=== PATIENT | male | born 1930 | race Caucasian/White ===

== ENCOUNTER → 2016-05-04 | Outpatient (CLI) | payer MEDICARE, BC, OTHER ==
[~2016-05-04] MED LIST: /TAMS4CA OR; /WARF5TA OR; ACET65TA OR; ASPI81TA31 OR; ATEN25TA OR; BENA25TA4 PO; COLA100C2 OR; COUMADIN; COZA100T OR; HYDR25TA6 OR; LASI40TA PO; LIPI20TA OR; PRAD75CA3 PO; PROS5TAB OR; VITA100037 PO
[2016-05-04 12:26] LABS: INR 2.11
== END ==
LOC: M WUC 10:36
PROVIDERS: ATTEND Family Medicine
DX: Z51.81 Encounter for therapeutic drug level monitoring (principal); Z79.01 Long term (current) use of anticoagulants

== ENCOUNTER → 2016-05-26 | Outpatient (CLI) | payer MEDICARE, BC, OTHER ==
[2016-05-26 13:45] LABS: INR 2.11
== END ==
LOC: M WUC 09:09
PROVIDERS: ATTEND Family Medicine
DX: Z51.81 Encounter for therapeutic drug level monitoring (principal); Z79.01 Long term (current) use of anticoagulants

== ENCOUNTER → 2016-06-22 | Outpatient (CLI) | payer MEDICARE, BC, OTHER ==
[2016-06-22 12:55] LABS: INR 2.12
== END ==
LOC: M WUC 09:38
PROVIDERS: ATTEND Family Medicine
DX: Z51.81 Encounter for therapeutic drug level monitoring (principal)

== ENCOUNTER 2016-07-13 14:54 | Inpatient (IN) | payer MEDICARE, BC, OTHER ==
[~2016-07-13] VITALS: Ht 182.9 cm; Wt 88.9 kg
[2016-07-13] MEDS ORDERED: LORazepam 2 MG/ML VIAL (J2060) As Ordered ONE (14:59)
[2016-07-13] MEDS ORDERED: LORazepam 2 MG/ML VIAL (J2060) IV STA ×2 (15:08→17:23)
[2016-07-13] MEDS ORDERED: ATEN25TA PO (15:18)
[2016-07-13] MEDS ORDERED: PROS5TAB PO (15:18)
[2016-07-13] MEDS ORDERED: COZA100T2 PO (15:18)
[2016-07-13] MEDS ORDERED: BENA25CA4 PO (15:18)
[2016-07-13] MEDS ORDERED: COLA100C3 PO (15:18)
[2016-07-13] MEDS ORDERED: VITA100037 PO (15:18)
[2016-07-13] MEDS ORDERED: LASI40TA PO (15:18)
[2016-07-13] MEDS ORDERED: LIPI20TA PO (15:18)
[2016-07-13] MEDS ORDERED: FLOM5CAP PO ×2 (15:18→18:01)
[2016-07-13 15:27] LABS: BASO % 0.4 % (0.0-1.0); EOS # 0.2 K/mm3 (0.0-0.50); EOS % 2.4 % (0.0-3.0); LARGE UNSTAINED CELL # 0.2 K/mm3 (0.0-0.4); LARGE UNSTAINED CELL % 1.9 % (0.0-4.0); LYMPH # 3.7 K/mm3 (1.5-4.5); LYMPH % 33.5 % (24.0-44.0); MEAN CORPUSCULAR HEMOGLOBIN 28.6 pg (27.0-33.0); MEAN CORPUSCULAR HGB CONC 31.7 g/dl (32.0-36.5); MEAN CORPUSCULAR VOLUME 90.3 fl (80.0-96.0); MONO # 0.5 K/mm3 (0.0-0.8); MONO % 5.2 % (0.0-5.0); NEUTROPHILS # 5.9 K/mm3 (1.8-7.7); NEUTROPHILS % 56.6 % (36.0-66.0); PLATELET COUNT, AUTOMATED 248 k/mm3 (150-450); RED CELL DISTRIBUTION WIDTH 13.9 % (11.5-14.5); WHITE BLOOD COUNT 10.4 K/mm3 (4.0-10.0)
[2016-07-13 15:48] LABS: ABG BASE EXCESS -4.4 (-2.0-2.0); ABG HCO3 20.2 MEQ/L (22.0-26.0); ABG PARTIAL PRESSURE CO2 35.6 mmHg (35.0-45.0); ABG PARTIAL PRESSURE O2 233.4 mmHg (75.0-100.0); ABG STANDARD HCO3 20.9 MEQ/L (22.0-26.0); ABG TOTAL CO2 21.3 MEQ/L (23.0-31.0); ABG pH (ARTERIAL) 7.371 UNITS (7.350-7.450)
[2016-07-13 15:56] LABS: METHADONE URINE NEGATIVE (NEGATIVE)
--- NOTE | 2016-07-13 15:59 | REP ---
CT HEAD WITHOUT CONTRAST: HISTORY: Altered mental status. COMPARISON: 06/14/2010 An area of decreased attenuation is present in the right basal ganglia and centrum semiovale. This represents an old lacunar infarction. An area of decreased attenuation is present in the right occipital lobe. This represents and old infarction. Areas of decreased attenuation are present in the periventricular and subcortical white matter. This represents small vessel ischemic disease. There is no intraparenchymal hemorrhage, mass or midline shift. The ventricular system and cortical sulci as well as subarachnoid space in the posterior fossa are dilated consistent with moderate volume loss. There is no extracerebral collection. The visualized sinuses are clear. IMPRESSION: 1. 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 2. 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 3. Small vessel ischemic disease. 4. Moderate volume loss. Signed by Santo Dutton MD 07/13/2016 04:13 P
--- NOTE | 2016-07-13 16:00 | REP ---
PORTABLE CHEST: AP portable view of the chest is performed and compared to prior study 04/27/2012 as well as other prior exams. There is no evidence of acute infiltrate or pulmonary edema. There is some mild cardiomegaly. There is calcification and ectasis with tortuosity of the thoracic aorta. Mediastinal silhouette appears unchanged. IMPRESSION: Mild cardiomegaly. No acute infiltrate. Signed by Martin Corrigan MD 07/13/2016 04:29 P
[2016-07-13 16:06] LABS: ALBUMIN 3.4 GM/DL (3.2-5.2); ALBUMIN/GLOBULIN RATIO 0.92 (1.00-1.93); ALKALINE PHOSPHATASE 49 U/L (45-117); ALT/SGPT 18 U/L (12-78); ANION GAP 16 MEQ/L (8-16); AST/SGOT 14 U/L (15-37); BILIRUBIN,DIRECT 0.2 MG/DL (0.0-0.2); BILIRUBIN,TOTAL 0.7 MG/DL (0.2-1.0); BLOOD UREA NITROGEN 26 MG/DL (7-18); CARBON DIOXIDE LEVEL 19 MEQ/L (21-32); CHLORIDE LEVEL 109 MEQ/L (98-107); CREATININE FOR GFR 1.41 MG/DL (0.70-1.30); GLOMERULAR FILTRATION RATE 50.7 (>35); GLUCOSE, FASTING 147 MG/DL (83-110); POTASSIUM SERUM 3.9 MEQ/L (3.5-5.1); SODIUM LEVEL 144 MEQ/L (136-145); TOTAL PROTEIN 7.1 GM/DL (6.4-8.2)
[2016-07-13] MEDS: WARFARIN SOD 5 MG TAB PO SCH (17:00)
[2016-07-13] MEDS ORDERED: ASPIRIN 325 MG TAB PO ONE (17:15)
[2016-07-13] MEDS ORDERED: levETIRAcetam INJection 1,000 MG in D5W 100 ML IV ONE (17:30)
[2016-07-13 17:54] LABS: INR 2.81
[2016-07-13] MEDS ORDERED: AMLO2.5T PO (18:01)
[2016-07-13] MEDS ORDERED: VITA100066 PO (18:01)
[2016-07-13] MEDS ORDERED: ATOR1TAB21 PO (18:01)
[2016-07-13] MEDS ORDERED: WARF-23 PO (18:01)
[2016-07-13] MEDS ORDERED: ASPI1TAB PO (18:01)
[2016-07-13] MEDS ORDERED: WARF-18 PO (18:01)
[2016-07-13] MEDS ORDERED: VALS1TAB48 PO (18:01)
[2016-07-13] MEDS ORDERED: CARV3.12 PO (18:01)
[2016-07-13] MEDS ORDERED: TYLE650T35 PO (18:03)
[2016-07-13] MEDS: NS 1,000 ML IV SCH (18:30)
[2016-07-13] MEDS ORDERED: ACETAMINOPHEN TAB 650MG DOSE (2X325MG) PO PRN (18:45)
--- NOTE | 2016-07-13 19:49 | HPEPDOC ---
General Date of Admission 07/13/2016 Primary Care Physician: Marco Antonio Veronica MD Attending Physician: JD RACHEL MD Chief Complaint The patient is a 86-year-old male admitted with a reason for visit of Altered Mental Status. Source: Family, RN notes reviewed, Old records Exam Limitations: Clinical conditions Timing/Duration: This morning History of Present Illness Mr. Osborne is an 86-year-old male who presents to [facility]'s emergency Department with altered mental status. He is accompanied by his daughter and granddaughter. His daughter provides all of the history secondary to patient's clinical condition. Medical history significant for diastolic congestive heart failure, abdominal aortic aneurysm, atrial fibrillation with rapid ventricular response, history of transient ischemic attack, chronic kidney disease, benign prostatic hyperplasia, hypertension, dyslipidemia, umbilical hernia, diverticulosis, nonbleeding internal hemorrhoids, osteoarthritis, history of hammertoes, villous adenoma, tubular adenoma. Daughter states that patient was last known to be well at 7 AM this morning when she checked on him before going to work. Patient lives independently and is able to perform ADLs. Uses a walker. Family lives nearby and check on him several times a day. Aurora pratt checked on him after dropping the mail off and found him to be sitting in his rocking chair at the front door favoring his right side and gazing off to the right. Aurora pratt notified daughter and when she arrived she noted patient to be "shaking" with his "eyes fluttering". Denies bowel or bladder incontinence. She alerted her and they alerted EMS. Daughter does note that about 2 weeks ago she did notice that patient was having difficulty finding the right word to use when expressing himself. She admits that the only pain he complains of is arthritic pain in his hands. She does not recall him complaining of fever, night sweats, chills, nausea, vomiting , abdominal pain, acute changes to vision and/or hearing. 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 Hospitalist service was consulted and patient was admitted for further medical management. Home Medications Scheduled Amlodipine Besylate (Amlodipine Besylate) 2.5 Mg Tab 2.5 MG PO DAILY (Reported ) PATIENT AND FAMILY DO NOT KNOW WHAT PATIENT TAKES. FORGOT LIST AT HOME, PATIENT AMS AND USALLY DOES HIS OWN MEDS. LIST OBTAINED FROM MD VISIT AND PHARMACY. TOOK AM MEDS 07/13/16 Aspirin (Aspirin 81) 81 Mg Tab 81 MG PO DAILY (Reported) Atorvastatin Calcium (Atorvastatin Calcium) 20 Mg Tab 20 MG PO DAILY (Reported ) Carvedilol (Carvedilol) 3.125 Mg Tab 3.125 MG PO BID (Reported) Cholecalciferol (Vitamin D) 1,000 Unit Tab 1,000 UNIT PO DAILY (Reported) Tamsulosin Hydrochloride (Flomax) 0.4 Mg Cap 1 CAP PO DAILY (Reported) Valsartan (Valsartan) 320 Mg Tab 320 MG PO DAILY (Reported) Warfarin Sod (Warfarin Sodium) 2.5 Mg Tab 2.5 MG PO QWEEK (Reported) TUESDAY Warfarin Sod (Warfarin Sodium) 5 Mg Tab 5 MG PO 6XWK (Reported) SUN, MON, TU, TH, FRI, SAT Scheduled PRN Acetaminophen (Tylenol 8 Hour Arthritis) 650 Mg Tab 650 MG PO Q8H PRN PRN PAIN ( Reported) Allergies Coded Allergies: Enalapril (Unverified Adverse Reaction, Mild, COUGH, 07/25/12) No Known Allergies (Verified , 01/19/06) Past Medical History Medical History 1. Diastolic congestive heart failure 2. Abdominal aortic aneurysm 3. Atrial fibrillation with rapid ventricular response 4. History of transient ischemic attack 5. Chronic kidney disease 6. Benign prostatic hyperplasia 7. Hypertension 8. Dyslipidemia 9. Umbilical hernia 10. Diverticulosis 11. Nonbleeding internal hemorrhoids 12. Osteoarthritis 13. History of hammertoes 14. Villous adenoma 15. Tubular adenoma Surgical History 1. Right total knee replacement 2. History of colonoscopies 3. Hammertoe surgeries 4. Bunion removal 5. Left knee replacement 6. Umbilical hernia repair 7. Abdominal aortic aneurysm repair Family History Significant Family History: Cancer (father, esophageal cancer; sister, abdominal cancer; brother, cancer), Other (mother, liver disease) Social History * Smoker: former Smoker (also pack per day for 30 years, quit in 1993) Alcohol: Denies Recent Travel/Sick Contacts: Denies: Recent sick contacts, Recent travel Lives independently with family close by Retired [employer] employee - Previously worked for [employer] - Previously worked as snowplow Remote travel history, domestic No pets in the home Review of Symptoms Constitutional: Denies: Chills, Fever, Malaise, Weakness, Weight Loss Eyes: Reports: Other (per patient's daughter - denies acute vision changes) ENT: Denies: Head Aches Skin: Denies: Lesions, Rash Pulmonary: Denies: Cough, Pleuritic Chest Pain Cardiovascular: Denies: Chest Pain, Edema, Lt Headedness, Orthopnea, Palpitations Gastrointestinal: Denies: Abdominal Pain, Constipation, Diarrhea, Hematochezia , Melena, Nausea, Vomiting Genitourinary: Denies: Dysuria, Frequency, Hematuria Hematologic: Denies: Bruising Musculoskeletal: Denies: Back Pain, Joint Pain Neurological: Denies: Numbness, Weakness Physical Examination General Exam: Positive: Other (patient responds to tactile stimuli only) ENT Exam: Positive: Atraumatic Neck Exam: Positive: Supple, Negative: JVD, Lymphadenopathy, thyromegaly Chest Exam: Positive: Clear to auscultation, Normal air movement Heart Exam: Positive: Normal S1, Normal S2, Negative: Murmurs, Other, Rate Normal, Regular Rhythm, Rubs Telemetry: Positive: Atrial fibrillation Abdomen Exam: Positive: BS Hypoactive, Soft, Negative: Hepatospenomegaly, Tenderness Extremity Exam: Positive: Normal pulses, Negative: Clubbing, Cyanosis, Edema, Swelling, Tenderness Neuro Exam: Positive: Other (unable to assess secondary to patient's clinical condition), Negative: Cranial Nerves 3-12 NL, Normal Speech, Strength at 5/5 X4 ext Psych Exam: Negative: Oriented x 3 Other physical findings Chest x-ray AP portable view of the chest performed and compared to prior study 04/27/2012 as well as a prior exams. There is no evidence of acute infiltrate or pulmonary edema. There is no evidence of acute infiltrate or pulmonary edema. There is some mild cardiomegaly. There is calcification and ectasis with tortuosity of the thoracic aorta. Mediastinal silhouette appears unchanged. IMPRESSION: Mild cardiomegaly. No acute infiltrate. CT of the head without contrast An area of decreased attenuation is present in the right basal ganglia and centrum semiovale. This represents an old lacunar infarction. An area of decreased attenuation is present in the right occipital lobe. This represents an old infarction. There is of decreased attenuation present in the periventricular and subcortical white matter. This represents small vessel ischemic disease. There is no intraparenchymal hemorrhage, mass or midline shift. The ventricular system and cortical sulci as well as subarachnoid space in the posterior fossa dilated consistent with moderate volume loss. There is no extracerebral collection. The visualized sinuses are clear. IMPRESSION: 1. 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 2. Altered right occipital lobe infarction. 3. Small vessel ischemic disease. 4. Moderate volume loss. Vital Signs T 98.3 HR 118 RR 20 BP 128/62 O2 100% Ventimask 50% FiO2 Height (in): 72 Weight (kg): 81.828 BMI (kg): 24.5 Laboratory Data Labs 24H Laboratory Tests 2 07/13/16 15:05: White Blood Count 10.4H, Red Blood Count 4.76, Hemoglobin 13.6L, Hematocrit 43.0 , Mean Corpuscular Volume 90.3, Mean Corpuscular Hemoglobin 28.6, Mean Corpuscular Hemoglobin Concent 31.7L, Red Cell Distribution Width 13.9, Platelet Count 248, Neutrophils (%) (Auto) 56.6, Lymphocytes (%) (Auto) 33.5, Monocytes (%) (Auto) 5.2H, Eosinophils (%) (Auto) 2.4, Basophils (%) (Auto) 0.4 , Neutrophils # (Auto) 5.9, Lymphocytes # (Auto) 3.7, Monocytes # (Auto) 0.5, Eosinophils # (Auto) 0.2, Basophils # (Auto) 0.0, Large Unclassified Cells # 0.2 , Large Unclassified Cells % 1.9 07/13/16 15:08: Prothromb Time International Ratio 2.81, Prothrombin Time 29.6H 07/13/16 15:09: Acetaminophen Level < 2.0L, Aspartate Amino Transf (AST/SGOT) 14L, Alanine Aminotransferase (ALT/SGPT) 18, Alkaline Phosphatase 49, Total Bilirubin 0.7, Direct Bilirubin 0.2, Albumin 3.4, Albumin/Globulin Ratio 0.92L, Anion Gap 16, Calcium Level 9.0, Creatine Kinase MB 4.0H, Creatine Kinase MB Relative Index 2.79, Ethyl Alcohol Level < 0.003, Glomerular Filtration Rate 50.7, Salicylates Level < 1.7L, Thyroid Stimulating Hormone (TSH) 2.210, Total Creatine Kinase 143 , Total Protein 7.1, Troponin I < 0.02 07/13/16 15:11: Urine Amorphous Sediment , Urine Amphetamines Screen NEGATIVE, Urine Benzodiazepines Screen NEGATIVE, Urine Opiates Screen NEGATIVE, Urine Appearance CLEAR, Urine Color YELLOW, Urine pH 6.0, Urine Specific [place] 1.014 , Urine Protein 2+H, Urine Glucose (UA) NEGATIVE, Urine Ketones TRACEH, Urine Urobilinogen 0.2, Urine Bilirubin NEGATIVE, Urine Leukocyte Esterase NEGATIVE, Urine Bacteria (Auto) NEGATIVE, Urine Barbiturates Screen NEGATIVE, Urine Blood 2+H, Urine Calcium Carbonate Cryst(Auto) , Urine Calcium Oxalate Cryst (Auto) , Urine Calcium Phosphate Shira (Auto) , Urine Cannabinoids Screen NEGATIVE, Urine Cellular Casts , Urine Cocaine Metabolite Screen NEGATIVE, Urine Cystine Crystals , Urine Granular Casts (Auto) , Urine Hyaline Casts (Auto) 0, Urine Leucine Crystals , Urine Methadone Screen NEGATIVE, Urine Mucus (Auto) SMALL, Urine Nitrite NEGATIVE, Urine Oval Fat Bodies (Auto) , Urine Phencyclidine Screen NEGATIVE, Urine RBC (Auto) 19H, Urine Renal Epithelial Cells , Urine Sperm (Auto) , Urine Squamous Epithelial Cells 0, Urine Transitional Epithelial Cells , Urine Trichomonas (Auto) , Urine Triple Phosphate Cryst (Auto) , Urine Tyrosine Crystals , Urine Uric Acid Crystals (Auto) , Urine WBC (Auto) 5H, Urine Waxy Casts (Auto) , Urine Yeast-Like Cells (Auto) 07/13/16 15:38: Arterial Blood pH 7.371, Arterial Blood Partial Pressure CO2 35.6, Arterial Blood Partial Pressure O2 233.4H, Arterial Blood Total CO2 21.3L, Arterial Blood HCO3 20.2L, Arterial Blood Base Excess -4.4L, Arterial Blood Oxygen Saturation 98.8, Blood Gas Bicarbonate Standard 20.9L CBC/BMP Laboratory Tests 07/13/16 15:05 Red Blood Count 4.76, Mean Corpuscular Volume 90.3, Mean Corpuscular Hemoglobin 28.6, Mean Corpuscular Hemoglobin Concent 31.7 L, Red Cell Distribution Width 13.9, Neutrophils (%) (Auto) 56.6, Lymphocytes (%) (Auto) 33.5, Monocytes (%) ( Auto) 5.2 H, Eosinophils (%) (Auto) 2.4, Basophils (%) (Auto) 0.4, Neutrophils # (Auto) 5.9, Lymphocytes # (Auto) 3.7, Monocytes # (Auto) 0.5, Eosinophils # ( Auto) 0.2, Basophils # (Auto) 0.0 07/13/16 15:09 Microbiology Microbiology 07/13/16 Urine Culture, Received Pending RAD Interpretation STUDY: CXR Rad Actions: Report Reviewed Assessment/Plan This is an 86-year-old male with past medical history significant for diastolic congestive heart failure, abdominal aortic aneurysm, atrial fibrillation with rapid ventricular response, history of transient ischemic attack, chronic kidney disease, benign prostatic hyperplasia, hypertension, dyslipidemia, umbilical hernia, diverticulosis, nonbleeding internal hemorrhoids , osteoarthritis, history of hammertoes, villous adenoma, tubular adenoma who presents with altered mental status likely secondary to cerebrovascular accident and seizure. Problems (1) Altered mental status Status: Acute Problem Text: Likely secondary to cerebrovascular accident which likely resulted in seizure Neurology consult Continue aspirin rectally Obtain speech evaluation, physical therapy, occupational therapy Obtain brain MRI Obtain brain and neck MRA Obtain EEG Obtain echo Place aspiration precautions Initiate intravenous fluid resuscitation 70 mLs per hour Make patient nothing by mouth Continuous pulse oximetry Admit to the intensive care unit with continuous telemetry Obtain cardiac enzymes Could consider restarting beta blockers once patient transitions to oral Continue anticoagulation Allow for permissive hypertension and could consider restarting antihypertensives in 24 hours (2) Seizure Status: Acute Problem Text: Seizure witnessed by daughter at home as well as witnessed seizure in the emergency department Likely secondary to possible cerebrovascular accident INR is therapeutic 2.81 Consult neurology Obtain EEG Perform neuro checks every hour Start patient on Keppra 750 mg IV twice a day (3) Atrial fibrillation with rapid ventricular response Status: Chronic Problem Text: Maintain patient on home dose of Coumadin Hold patient's amlodipine at this time secondary to progressive hypertension Could consider restarting patient's amlodipine after 24 hours (4) Diastolic congestive heart failure Status: Chronic Problem Text: Strict I's and O's Daily weight Intravenous fluid resuscitation with normal saline at 70 mLs per hour Plan / VTE VTE Prophylaxis Ordered?: Yes (Coumadin) Plan / Urinary Catheter Reason for insertion/continuin: Critical Pt monitoring Plan Plan Altered mental status Patient is nonconversant and response to tactile stimuli only. Altered mental status is likely secondary to possible cerebrovascular accident which resulted in the witnessed seizures 2 episodes. We will obtain neurology consult for recommendations. Continue aspirin rectally. Obtain speech evaluation and treatment, physical therapy evaluation and treatment, and occupational evaluation and treatment. Obtain brain MRI, carotid and vertebral artery MRA, and brain MRA. Obtaining EEG and echocardiogram. Initiate intravenous fluid resuscitation at 70 mLs per hour. Make patient nothing by mouth for tonight. Place aspiration precautions. Monitor patient in the ICU on telemetry with continuous pulse oximetry. Obtain serial cardiac enzymes. Could consider restarting patient's beta otis once able to take oral medications. Continue anticoagulation with warfarin. Maintain permissive hypertension. Hold patient's amlodipine, chlorthalidone, and valsartan. Could consider restarting antihypertensive medications after 24 hours. Seizure Question whether the seizure as the results of a cerebrovascular accident. Patient does have underlying atrial fibrillation with rapid ventricular response. Per neurology's recommendation started patient on 750 mg Keppra IV twice a day. Neurology will see the patient. Obtain EEG and conduct neuro checks every hour. Atrial fibrillation with rapid ventricular response EKG performed in the emergency department showed atrial fibrillation with rapid ventricular response. When compared with prior EKG that was normal sinus rhythm. Patient does have a history of atrial fibrillation with rapid ventricular response. We'll keep patient on home dose of Coumadin and carvedilol. Monitor patient in the ICU on telemetry. Hold other antihypertensive medications at this time, including amlodipine, chlorthalidone , valsartan. Diastolic congestive heart failure Monitor daily weights. Strict I's and O's. Intravenous fluid resuscitation with normal saline at 70 mLs per hour. DVT prophylaxis: Coumadin Diet: Nothing by mouth for the time being CODE STATUS: Unsure at this time, daughter will bring medical paperwork to confirm status Disposition Admit to the intensive care unit Anticipated hospitalization: 2 nights Attending: Dr. Veronica IVF: Initiate (normal saline at 70 mls per hour) Diet: Make NPO Activity: Bedrest Therapy: PT, OT, Speech Diagnostics: Check Labs, Repeat Labs in AM, Obtain Cultures, MRI (brain), TTE, Other Diagnostics (EEG MRA of the brain, MRA of the carotids and vertebral arteries) GME ATTESTATION GME ATTESTATION My preceptor for this patient encounter was physically present in the building during the encounter and was fully available. As needed, all aspects of the patient interview, examination, medical decision making process, and medical care plan development were reviewed and approved by the preceptor. Preceptor is aware and concurs with the plan as stated in the body of this note and will attest to such by his/her cosignature. ATTENDING NOTE I have both independently examined this patient as well as reviewed the H&P. I have discussed in detail with the resident the findings and plan of treatment as documented in the residents note. I will continue to follow the patient and offer further guidance to the patients care as necessary during this hospital stay. JEAN Salazar MD Jul 13, 2016 19:06 JD RACHEL MD Jul 19, 2016 08:40
[2016-07-13] MEDS ORDERED: levETIRAcetam 250MG TABLET (KEPPRA) PO SCH (21:00)
[2016-07-13] MEDS: ASPIRIN 300 MG SUPP PR SCH (21:00)
[2016-07-13] MEDS: CARVedilol 3.125 MG TAB PO SCH (21:00)
[2016-07-13] MEDS ORDERED: HALOPERIDOL 5 MG/ML VIAL (J1630) As Ordered ONE (23:40)
[2016-07-13] MEDS ORDERED: HALOPERIDOL 5 MG/ML VIAL (J1630) IM PRN (23:45)
[2016-07-14] VITALS (20 sets, daily range): BP systolic 127–196; BP diastolic 67–101; O2SAT 97–99
[2016-07-14] MEDS: NITROGLYCERIN 2% OINT 1 GM *U/D* PKT TOP SCH ×4 (04:02→21:55)
[2016-07-14] MEDS: levETIRAcetam INJection 750 MG in D5W 100 ML IV SCH ×2 (05:11→18:00)
[2016-07-14] MEDS ORDERED: levETIRAcetam INJection 750 MG in D5W 100 ML IV SCH (06:00)
[2016-07-14 06:09] LABS: MEAN CORPUSCULAR HEMOGLOBIN 27.8 pg (27.0-33.0); MEAN CORPUSCULAR HGB CONC 32.2 g/dl (32.0-36.5); MEAN CORPUSCULAR VOLUME 86.3 fl (80.0-96.0); RED CELL DISTRIBUTION WIDTH 13.9 % (11.5-14.5); WHITE BLOOD COUNT 7.6 K/mm3 (4.0-10.0)
[2016-07-14 06:11] LABS: INR 2.9
[2016-07-14 06:26] LABS: ANION GAP 6 MEQ/L (8-16); BLOOD UREA NITROGEN 21 MG/DL (7-18); CALCIUM LEVEL 8.3 MG/DL (8.8-10.2); CARBON DIOXIDE LEVEL 30 MEQ/L (21-32); CHLORIDE LEVEL 108 MEQ/L (98-107); CREATININE FOR GFR 1.08 MG/DL (0.70-1.30); GLOMERULAR FILTRATION RATE > 60.0 (>35); GLUCOSE, FASTING 112 MG/DL (83-110); POTASSIUM SERUM 3.5 MEQ/L (3.5-5.1); SODIUM LEVEL 144 MEQ/L (136-145)
[2016-07-14] MEDS ORDERED: ASPIRIN 81 MG CHEW TABLET PO SCH (09:00)
[2016-07-14] MEDS: CARVedilol 3.125 MG TAB PO SCH ×2 (09:00→20:24)
[2016-07-14] MEDS: VITAMIN D 1,000 INTERNATIONAL UNITS TABLET PO SCH (09:00)
[2016-07-14] MEDS: TAMSULOSIN 0.4 MG CAP PO SCH (09:00)
[2016-07-14] MEDS: ATORVASTATIN 20 MG TAB PO SCH (09:00)
[2016-07-14] MEDS ORDERED: ASPIRIN 81 MG ENTERIC TAB XX SCH (09:00)
--- NOTE | 2016-07-14 09:25 | IPNPDOC ---
Subjective Date Seen The patient was seen on 07/14/16. Subjective Chief Complaint/HPI The patient is a 86-year-old male admitted with a reason for visit of Altered Mental Status;Seizure. Events since last encounter Patient required Haldol overnight due to extreme agitation. Sedated this morning Constitutional: Denies: Chills, Fever Pulmonary: Denies: Cough, Dyspnea Gastrointestinal: Denies: Nausea, Vomiting Objective Physical Examination General Exam: Positive: Other (opens eyes partly to voice and gentle tactile stimuli, but does not speak or follow commands. Moans some) ENT Exam: Positive: Atraumatic Neck Exam: Positive: Supple, Negative: JVD, Lymphadenopathy, thyromegaly Chest Exam: Positive: Clear to auscultation, Normal air movement Heart Exam: Positive: Normal S1, Normal S2, Rate Normal, Negative: Murmurs, Other, Regular Rhythm, Rubs Telemetry: Positive: Atrial fibrillation (rate controlled in 70s) Abdomen Exam: Positive: BS Hypoactive, Soft, Negative: Hepatospenomegaly, Tenderness Extremity Exam: Positive: Normal pulses, Negative: Clubbing, Cyanosis, Edema, Swelling, Tenderness Neuro Exam: Positive: Other (unable to assess secondary to patient's clinical condition, face with ? right eye dropp c/w left when opens eyes. Moving both arms), Negative: Cranial Nerves 3-12 NL, Normal Speech, Strength at 5/5 X4 ext Psych Exam: Negative: Oriented x 3 Assessment /Plan Problems (1) Altered mental status Status: Acute Problem Text: 07/14 - Still unable to obtain MRI brain or EEG due to agitation and inability to cooperate with testing. Would like to hold off on sedation if possible so as to better monitor for improvement in mental status. Suspect CVA. Unable to take pos so NTG paste ordered for gentle BP control. May need to give IV metoprol if HR becomees rapid from A-fib, but so far well controlled. Coumadin therapeutic currently but may need to use Lovenox if INR drifts down Aspirin being given rectally Neurology consult pending Obtain speech evaluation, physical therapy, occupational therapy when able to participate Obtain brain MRI Obtain brain and neck MRA Obtain EEG Obtain echo contiue aspiration precautions Continue intravenous fluid resuscitation 70 mLs per hour (2) Seizure Status: Acute Problem Text: Seizure witnessed by daughter at home as well as witnessed seizure in the emergency department Likely secondary to possible cerebrovascular accident INR is therapeutic 2.81 Obtain EEG when able Perform neuro checks every hour continue Keppra 750 mg IV twice a day for now (3) Atrial fibrillation with rapid ventricular response Status: Chronic Problem Text: 07/14 - Maintain patient on home dose of Coumadin if able to take po INR therapeutic currently, but will need Lovenox if INR drifts down Unable to take Coreg currently consider IV Metoprolol if Rate becomes rapid (4) Diastolic congestive heart failure Status: Chronic Problem Text: 07/14 - Strict I's and O's Daily weight Intravenous fluid resuscitation with normal saline at 70 mLs per hour Currently compensated clinically Plan/VTE VTE Prophylaxis Ordered?: Yes (Coumadin) Plan/Urinary Catheter Reason for insertion/continuin: Critical Pt monitoring Plan IVF: Initiate (normal saline at 70 mls per hour) Diet: Make NPO Activity: Bedrest Therapy: PT, OT, Speech Diagnostics: Check Labs, Repeat Labs in AM, Obtain Cultures, MRI (brain), TTE, Other Diagnostics (EEG MRA of the brain, MRA of the carotids and vertebral arteries) Advance Directives: DNR (Spoke with Daughter - MOLST completed. Monitor for improvement over next 48 hours or so and then discuss transition to HEEL DIPPER if no improvement in status) VS, I&O, 24H, Fishbone Vital Signs/I&O Vital Signs Date Time Temp Pulse Resp B/P Pulse Ox O2 Delivery O2 Flow Rate FiO2 07/14/16 08:00 Nasal Cannula 2.0 07/14/16 06:00 67 19 141/72 98 07/14/16 04:00 98.2 07/13/16 15:24 50 I&O- Last 24 Hours up to 6 AM 07/14/16 06:00 Intake Total 457.5 ml Output Total 1505 ml Balance -1047.5 ml Laboratory Data 24H LABS Laboratory Tests 2 07/13/16 15:05: White Blood Count 10.4H, Red Blood Count 4.76, Hemoglobin 13.6L, Hematocrit 43.0 , Mean Corpuscular Volume 90.3, Mean Corpuscular Hemoglobin 28.6, Mean Corpuscular Hemoglobin Concent 31.7L, Red Cell Distribution Width 13.9, Platelet Count 248, Neutrophils (%) (Auto) 56.6, Lymphocytes (%) (Auto) 33.5, Monocytes (%) (Auto) 5.2H, Eosinophils (%) (Auto) 2.4, Basophils (%) (Auto) 0.4 , Neutrophils # (Auto) 5.9, Lymphocytes # (Auto) 3.7, Monocytes # (Auto) 0.5, Eosinophils # (Auto) 0.2, Basophils # (Auto) 0.0, Large Unclassified Cells # 0.2 , Large Unclassified Cells % 1.9 07/13/16 15:08: Prothromb Time International Ratio 2.81, Prothrombin Time 29.6H 07/13/16 15:09: Acetaminophen Level < 2.0L, Aspartate Amino Transf (AST/SGOT) 14L, Alanine Aminotransferase (ALT/SGPT) 18, Alkaline Phosphatase 49, Total Bilirubin 0.7, Direct Bilirubin 0.2, Albumin 3.4, Albumin/Globulin Ratio 0.92L, Anion Gap 16, Calcium Level 9.0, Creatine Kinase MB 4.0H, Creatine Kinase MB Relative Index 2.79, Ethyl Alcohol Level < 0.003, Glomerular Filtration Rate 50.7, Salicylates Level < 1.7L, Thyroid Stimulating Hormone (TSH) 2.210, Total Creatine Kinase 143 , Total Protein 7.1, Troponin I < 0.02 07/13/16 15:11: Urine Amorphous Sediment , Urine Amphetamines Screen NEGATIVE, Urine Benzodiazepines Screen NEGATIVE, Urine Opiates Screen NEGATIVE, Urine Appearance CLEAR, Urine Color YELLOW, Urine pH 6.0, Urine Specific [place] 1.014 , Urine Protein 2+H, Urine Glucose (UA) NEGATIVE, Urine Ketones TRACEH, Urine Urobilinogen 0.2, Urine Bilirubin NEGATIVE, Urine Leukocyte Esterase NEGATIVE, Urine Bacteria (Auto) NEGATIVE, Urine Barbiturates Screen NEGATIVE, Urine Blood 2+H, Urine Calcium Carbonate Cryst(Auto) , Urine Calcium Oxalate Cryst (Auto) , Urine Calcium Phosphate Shira (Auto) , Urine Cannabinoids Screen NEGATIVE, Urine Cellular Casts , Urine Cocaine Metabolite Screen NEGATIVE, Urine Cystine Crystals , Urine Granular Casts (Auto) , Urine Hyaline Casts (Auto) 0, Urine Leucine Crystals , Urine Methadone Screen NEGATIVE, Urine Mucus (Auto) SMALL, Urine Nitrite NEGATIVE, Urine Oval Fat Bodies (Auto) , Urine Phencyclidine Screen NEGATIVE, Urine RBC (Auto) 19H, Urine Renal Epithelial Cells , Urine Sperm (Auto) , Urine Squamous Epithelial Cells 0, Urine Transitional Epithelial Cells , Urine Trichomonas (Auto) , Urine Triple Phosphate Cryst (Auto) , Urine Tyrosine Crystals , Urine Uric Acid Crystals (Auto) , Urine WBC (Auto) 5H, Urine Waxy Casts (Auto) , Urine Yeast-Like Cells (Auto) 07/13/16 15:38: Arterial Blood pH 7.371, Arterial Blood Partial Pressure CO2 35.6, Arterial Blood Partial Pressure O2 233.4H, Arterial Blood Total CO2 21.3L, Arterial Blood HCO3 20.2L, Arterial Blood Base Excess -4.4L, Arterial Blood Oxygen Saturation 98.8, Blood Gas Bicarbonate Standard 20.9L 07/13/16 21:33: Creatine Kinase MB 19.8H, Creatine Kinase MB Relative Index 2.60, Total Creatine Kinase 761#H, Troponin I 0.12#H 07/14/16 05:40: Creatine Kinase MB 29.9H, Creatine Kinase MB Relative Index 1.88, Total Creatine Kinase 1588#H, Troponin I 0.17#H, Anion Gap 6L, Blood Urea Nitrogen 21H , Creatinine 1.08, Sodium Level 144, Potassium Level 3.5, Chloride Level 108H, Carbon Dioxide Level 30, Calcium Level 8.3L, Glomerular Filtration Rate > 60.0, Prothromb Time International Ratio 2.90, Prothrombin Time 30.4H CBC/BMP Laboratory Tests 07/13/16 15:05 Red Blood Count 4.76, Mean Corpuscular Volume 90.3, Mean Corpuscular Hemoglobin 28.6, Mean Corpuscular Hemoglobin Concent 31.7 L, Red Cell Distribution Width 13.9, Neutrophils (%) (Auto) 56.6, Lymphocytes (%) (Auto) 33.5, Monocytes (%) ( Auto) 5.2 H, Eosinophils (%) (Auto) 2.4, Basophils (%) (Auto) 0.4, Neutrophils # (Auto) 5.9, Lymphocytes # (Auto) 3.7, Monocytes # (Auto) 0.5, Eosinophils # ( Auto) 0.2, Basophils # (Auto) 0.0 07/13/16 15:09 07/14/16 05:40 Red Blood Count 4.49, Mean Corpuscular Volume 86.3, Mean Corpuscular Hemoglobin 27.8, Mean Corpuscular Hemoglobin Concent 32.2, Red Cell Distribution Width 13.9 , Calcium Level 8.3 L, Total Creatine Kinase 1588 #H Microbiology Microbiology 07/13/16 Urine Culture, Received Pending ZAC LARA PA-C Jul 14, 2016 09:25
[2016-07-14] MEDS: NS 1,000 ML IV SCH ×2 (10:00→21:55)
[2016-07-14] MEDS ORDERED: WARFARIN SOD 2.5 MG TAB PO SCH (17:00)
--- NOTE | 2016-07-14 19:20 | REPUSA ---
CLINICAL HISTORY: R/o CVA. TECHNIQUE: MRI of the brain was performed utilizing multiple sequences in axial, coronal and sagittal planes without IV contrast material. COMMENTS: The sella and parasellar region are unremarkable in appearance. The corpus callosum and cerebellar to nsils are of normal configuration and position. There are no intra or extra- axial collections. There is no mass effect or midline shift. There is no evidence of hematoma formation. There is no hydrocep halus. The visualized arterial structures demonstrate normal-appearing flow voids. The seventh and eighth ne rve bundles are visualized and are unremarkable in appearance. On diffusion weighted sequence, there is evidence of abnormally increased signal involving the left t emporoccipital lobe. This is compatible with acute to subacute stoke. Numerous confluent foci of T2/FLAIR hyperintensity are noted in the bilateral periventricular and sub cortical white matter compatible with severe chronic white matter ischemic changes. There is old lacu amy stroke noted involving the right internal capsule. Generalized proportionate dilatation of ventricles and sulci is present compatible with age-appropria te parenchymal atrophy. There is mucosal thickening involving the bilateral ethmoid and maxillary sinuses compatible with chr onic sinusitis. There is an 18 mm cyst noted at the right maxillary floor. IMPRESSION: 1. On diffusion weighted sequence, there is evidence of abnormally increased signal involving the lef t temporoccipital lobe. This is compatible with acute to subacute stoke. 2. Generalized age-appropriate parenchymal atrophy. 3. Severe chronic white matter microvascular ischemic changes. There is old lacunar stroke noted invo lving the right internal capsule. 4. Sinusitis. Thank you for your kind referral of this patient.
[2016-07-14] MEDS: ASPIRIN 300 MG SUPP PR SCH (21:55)
--- NOTE | 2016-07-14 22:56 | ECHO ---
DATE OF PROCEDURE: 07/14/2016 REFERRING PHYSICIAN: Marco Antonio Veronica MD INDICATION: Acute stroke. HEIGHT: 183 cm WEIGHT: 82 kg MEASUREMENTS: Aortic root: 4.1 cm Left atrium: 3.4 cm LVOT: 2.7 cm Left ventricle diastole: 3.2 cm Ventricular septum: 1.55 cm Posterior wall: 1.38 cm Inferior vena cava: 2.0 cm DOPPLER MEASUREMENTS: Aortic valve velocity: 181 cm/s LVOT velocity: 96.8 cm/s LVOT VTI: 16.3 cm Very mild mitral regurgitation. Very mild tricuspid regurgitation. Estimated right ventricle systolic pressure estimated to be at least 32 mmHg assuming a right atrial pressure of at least 5 mmHg. MITRAL ANNULAR TISSUE DOPPLER: Technically difficult due to E/A effusion. DESCRIPTION: Rhythm was probably sinus. This was a moderately technically difficult echocardiogram. No pericardial effusion. This is a 2D, M-mode, color flow Doppler and pulse wave Doppler examination and it included mitral annular tissue Doppler. CONCLUSIONS: 1. Mild-moderate concentric left ventricle hypertrophy. No regional wall motion abnormalities of the left ventricle. Normal left ventricle (LV) systolic function. Left ventricular ejection fraction (LVEF) 75% by visual estimate. Unable to assess LV diastolic function due to extensive E/A effusion at 93 beats per minute. 2. Mild dilatation of the aortic root at the level of the sinus of Valsalva. 3. Mild aortic valve sclerosis of a three-cuspid aortic valve. No aortic regurgitation. 4. Moderate mitral annular calcification. No mitral stenosis. Very mild mitral regurgitation. 5. Suggestive of mild elevation of estimated right ventricle systolic pressure.
[2016-07-15] VITALS (12 sets, daily range): BP systolic 128–176; BP diastolic 71–94; O2SAT 96–100
[2016-07-15] MEDS: NITROGLYCERIN 2% OINT 1 GM *U/D* PKT TOP SCH ×4 (04:00→21:27)
[2016-07-15 04:47] LABS: MEAN CORPUSCULAR HEMOGLOBIN 28.6 pg (27.0-33.0); MEAN CORPUSCULAR HGB CONC 33.3 g/dl (32.0-36.5); MEAN CORPUSCULAR VOLUME 85.8 fl (80.0-96.0); WHITE BLOOD COUNT 8.7 K/mm3 (4.0-10.0)
[2016-07-15 04:51] LABS: INR 2.68
[2016-07-15 05:11] LABS: ANION GAP 8 MEQ/L (8-16); BLOOD UREA NITROGEN 20 MG/DL (7-18); CALCIUM LEVEL 8.6 MG/DL (8.8-10.2); CARBON DIOXIDE LEVEL 28 MEQ/L (21-32); CHLORIDE LEVEL 108 MEQ/L (98-107); CREATININE FOR GFR 1.07 MG/DL (0.70-1.30); GLOMERULAR FILTRATION RATE > 60.0 (>35); GLUCOSE, FASTING 92 MG/DL (83-110); POTASSIUM SERUM 3.5 MEQ/L (3.5-5.1); SODIUM LEVEL 144 MEQ/L (136-145)
[2016-07-15] MEDS: levETIRAcetam INJection 750 MG in D5W 100 ML IV SCH (06:17)
[2016-07-15] MEDS: CARVedilol 3.125 MG TAB PO SCH ×2 (09:00→20:42)
[2016-07-15] MEDS: TAMSULOSIN 0.4 MG CAP PO SCH (09:00)
[2016-07-15] MEDS: VITAMIN D 1,000 INTERNATIONAL UNITS TABLET PO SCH (09:00)
[2016-07-15] MEDS: ATORVASTATIN 20 MG TAB PO SCH (09:00)
--- NOTE | 2016-07-15 09:18 | IPNPDOC ---
Subjective Date Seen The patient was seen on 07/15/16. Subjective Chief Complaint/HPI The patient is a 86-year-old male admitted with a reason for visit of Altered Mental Status;Seizure. Events since last encounter He spoke a few words yesterday, but mostly has been sleeping and unarousable. No further agitation. No further seizures Constitutional: Reports: Fever (low grade per VS), Denies: Chills Pulmonary: Denies: Cough, Dyspnea Gastrointestinal: Denies: Constipation, Diarrhea, Vomiting Genitourinary: Reports: Other Symptoms (prater in place) Objective Physical Examination General Exam: Positive: Other (Unresponsive to verbal or tactile stimuli today , breathing comfortably) ENT Exam: Positive: Atraumatic Neck Exam: Positive: Supple, Negative: JVD, Lymphadenopathy, thyromegaly Chest Exam: Positive: Clear to auscultation, Normal air movement Heart Exam: Positive: Normal S1, Normal S2, Rate Normal, Negative: Murmurs, Other, Regular Rhythm, Rubs Telemetry: Positive: Atrial fibrillation (rate controlled in 70s) Abdomen Exam: Positive: BS Hypoactive, Soft, Negative: Hepatospenomegaly, Tenderness Extremity Exam: Positive: Normal pulses, Negative: Clubbing, Cyanosis, Edema, Swelling, Tenderness Skin Exam: Positive: Other skin issue (left lateral foot tiwh 3 dime sized abrasions - scabbed No surrounding erythema) Neuro Exam: Positive: Other (unable to assess secondary to patient's clinical condition, face with ? right eye dropp c/w left when opens eyes. Moving both arms), Negative: Cranial Nerves 3-12 NL, Normal Speech, Strength at 5/5 X4 ext Psych Exam: Negative: Oriented x 3 Assessment /Plan Problems (1) Acute thromboembolic cerebrovascular accident (CVA) Status: Acute Problem Text: MRI 07/15 - Acute Left temporooccipital CVA Patient still unresponsive - unable to take pos continue ASA DC Coumadin remains therapeutic so far BP stable - Has NTG past ordered prn Unable to take statin po Addendum 09:30 - Dr. Myers called and does not think that the findings on the MRI are consistent with CVA. He is concerned that the findings show edema and may represent encephalitis possibly secondary to HSC or Meningitis. He asked me to get opinion from Dr. Dutton who thinks there is a small mass with surrounding edema. He requested MRI with contrast - I ordered this stat. Depending on results, we may need stat Spinal tap through IR and empiric tx with Acyclovir and abx with Id consult. (2) Low grade fever Status: Acute Problem Text: T max 100.4 this am Although his WBC is normal and his oxygen levels are good, he is a at risk for aspiration pneumonia due to his seizure I will get portable CXR today Also get U/C - prater in place so risk of UTI (3) Seizure Status: Acute Problem Text: Seizure witnessed by daughter at home as well as witnessed seizure in the emergency department Likely secondary to possible cerebrovascular accident INR is therapeutic 2.81 Obtain EEG when able Perform neuro checks every hour continue Keppra 750 mg IV twice a day for now 07/15 - No further seizure activity. May be able to get EEG today id still desired by Neurology Continue Keppra IV - defer dose adjustments to Neurology (4) Metabolic encephalopathy Status: Acute Problem Text: Still unresponsive secondary to acute CVA D/W Neurology if Keppra could be contributing to his sedation (5) Atrial fibrillation with rapid ventricular response Status: Chronic Problem Text: 07/15 - Maintain patient on home dose of Coumadin if able to take po INR therapeutic currently, but will need Lovenox if INR drifts down Unable to take Coreg currently = 2.68 today consider IV Metoprolol if Rate becomes rapid (6) Diastolic congestive heart failure Status: Chronic Problem Text: 07/15 - Strict I's and O's Daily weight Intravenous fluid resuscitation with normal saline at 70 mLs per hour Currently compensated clinically Plan/VTE VTE Prophylaxis Ordered?: Yes (Coumadin) Plan/Urinary Catheter Reason for insertion/continuin: Critical Pt monitoring Plan IVF: Initiate (normal saline at 70 mls per hour) Diet: Make NPO Activity: Bedrest Therapy: PT, OT, Speech Diagnostics: Check Labs, Repeat Labs in AM, Obtain Cultures, MRI (brain), TTE, Other Diagnostics (EEG MRA of the brain, MRA of the carotids and vertebral arteries) Advance Directives: DNR (Spoke with Daughter - MOLST completed. Monitor for improvement over next 48 hours or so and then discuss transition to MEDICAL TYPIST if no improvement in status) VS, I&O, 24H, Fishbone Vital Signs/I&O Vital Signs Date Time Temp Pulse Resp B/P Pulse Ox O2 Delivery O2 Flow Rate FiO2 07/15/16 06:00 100.4 86 24 146/75 99 Room Air 07/15/16 04:00 2.0 07/13/16 15:24 50 I&O- Last 24 Hours up to 6 AM 07/15/16 06:00 Intake Total 1680 ml Output Total 1195 ml Balance 485 ml Laboratory Data 24H LABS Laboratory Tests 2 07/14/16 13:23: Creatine Kinase MB 21.9H, Creatine Kinase MB Relative Index 1.41, Total Creatine Kinase 1550H, Troponin I 0.11#H 07/15/16 04:36: Anion Gap 8, Blood Urea Nitrogen 20H, Creatinine 1.07, Sodium Level 144, Potassium Level 3.5, Chloride Level 108H, Carbon Dioxide Level 28, Calcium Level 8.6L, Glomerular Filtration Rate > 60.0, Prothromb Time International Ratio 2.68, Prothrombin Time 28.6H CBC/BMP Laboratory Tests 07/15/16 04:36 Calcium Level 8.6 L, Red Blood Count 4.41, Mean Corpuscular Volume 85.8, Mean Corpuscular Hemoglobin 28.6, Mean Corpuscular Hemoglobin Concent 33.3, Red Cell Distribution Width 14.0 Microbiology Microbiology 07/13/16 Urine Culture - Final, Complete ZAC LARA PA-C Jul 15, 2016 09:17
--- NOTE | 2016-07-15 09:22 | REP ---
Clinical: Seizure possible aspiration pneumonia . Comparison: 07/13/2016 . Findings: The mediastinum and cardiac silhouette are stable and within normal limits for portable technique. The lung block demonstrate chronic-appearing changes without acute consolidation, effusion, or pneumothorax. Skeletal structures are intact. Impression: Chronic stable changes. No obvious acute consolidation. Signed by Luis Rahman MD 07/15/2016 09:13 A
[2016-07-15] MEDS: PANTOPRAZOLE 40MG INJ (PROTONIX) (C9113) IV SCH (09:23)
--- NOTE | 2016-07-15 12:24 | IPNPDOC ---
Date Seen After review of the MRI Brain with contrast, it appears that there is a mass with ring enhancement, along with 2-3 more small masses. Differentials can include metastatic disease vs septic emboli with abscess. Metastatic work up is recommended, along with blood cultures to exclude bacteremia. Echocardiogram has been completed. Metastatic disease is more likely. Progress Note SUBJECTIVE: Patient is a -year-old [RACE] [GENDER] with OBJECTIVE PHYSICAL EXAMINATION: VITAL SIGNS: Please see below. GENERAL: HEENT: CARDIOVASCULAR: . RESPIRATORY: . ABDOMINAL: EXTREMITIES: NEUROLOGICAL: PSYCHOLOGICAL: LABORATORY DATA: Please see below. MICROBIOLOGY: Please see below. IMAGING: Echocardiogram: . DVT prophylaxis ordered?: ASSESSMENT AND PLAN: This is a -year-old [RACE] [GENDER] with . PROBLEMS: 1. : . 2. : . 3. : . DISPOSITION: . VS, I&O, 24H, [facility] Vital Signs/I&O Vital Signs Date Time Temp Pulse Resp B/P Pulse Ox O2 Delivery O2 Flow Rate FiO2 07/15/16 12:00 101.0 96 28 156/94 94 Room Air 07/15/16 04:00 2.0 07/13/16 15:24 50 I&O- Last 24 Hours up to 6 AM 07/15/16 06:00 Intake Total 1680 ml Output Total 1195 ml Balance 485 ml Laboratory Data 24H LABS Laboratory Tests 2 07/14/16 13:23: Creatine Kinase MB 21.9H, Creatine Kinase MB Relative Index 1.41, Total Creatine Kinase 1550H, Troponin I 0.11#H 07/15/16 04:36: Anion Gap 8, Blood Urea Nitrogen 20H, Creatinine 1.07, Sodium Level 144, Potassium Level 3.5, Chloride Level 108H, Carbon Dioxide Level 28, Calcium Level 8.6L, Glomerular Filtration Rate > 60.0, Prothromb Time International Ratio 2.68, Prothrombin Time 28.6H 07/15/16 09:35: Urine Amorphous Sediment SMALLH, Urine Appearance HAZY, Urine Color YELLOW, Urine pH 5.0, Urine Specific [place] 1.018, Urine Protein 2+H, Urine Glucose (UA ) NEGATIVE, Urine Ketones 2+H, Urine Urobilinogen 0.2, Urine Bilirubin NEGATIVE , Urine Leukocyte Esterase NEGATIVE, Urine Bacteria (Auto) 1+H, Urine Blood 3+H , Urine Calcium Carbonate Cryst(Auto) , Urine Calcium Oxalate Cryst (Auto) , Urine Calcium Phosphate Shira (Auto) , Urine Cellular Casts , Urine Cystine Crystals , Urine Granular Casts (Auto) , Urine Hyaline Casts (Auto) 0, Urine Leucine Crystals , Urine Mucus (Auto) SMALL, Urine Nitrite NEGATIVE, Urine Oval Fat Bodies (Auto) , Urine RBC (Auto) 96H, Urine Renal Epithelial Cells , Urine Sperm (Auto) , Urine Squamous Epithelial Cells 0, Urine Transitional Epithelial Cells , Urine Trichomonas (Auto) , Urine Triple Phosphate Cryst (Auto) , Urine Tyrosine Crystals , Urine Uric Acid Crystals (Auto) , Urine WBC (Auto) 1, Urine Waxy Casts (Auto) , Urine Yeast-Like Cells (Auto) CBC/BMP Laboratory Tests 07/15/16 04:36 Calcium Level 8.6 L, Red Blood Count 4.41, Mean Corpuscular Volume 85.8, Mean Corpuscular Hemoglobin 28.6, Mean Corpuscular Hemoglobin Concent 33.3, Red Cell Distribution Width 14.0 Microbiology Microbiology 07/15/16 Urine Culture, Received Pending 07/13/16 Urine Culture - Final, Complete MALIHA LAGUERRE MD Jul 15, 2016 12:24
--- NOTE | 2016-07-15 12:31 | REP ---
MR BRAIN WITH CONTRAST: HISTORY: Intracranial mass. CONTRAST: ProHance 15 mL. COMPARISON: MR 07/14/2016. A ring enhancing mass is present in the left temporal lobe. The mass measures 2.5 cm in transverse x 2.5 cm in AP x 1.8 cm in cephalocaudal dimensions. There are six small enhancing nodules anterior and posterior to the 2.5 cm ring enhancing mass. These measure 6 to 8 mm in size. There is very little surrounding edema. There is mass effect with effacement of the overlying cortical sulci and partial effacement of the left lateral ventricle. There is no midline shift. There is no hydrocephalus or extracerebral collection. IMPRESSION: There is a 2.5 cm ring enhancing mass in the left temporal lobe. This is surrounded by small satellite lesions. 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 Signed by Santo Dutton MD 07/15/2016 12:40 P
--- NOTE | 2016-07-15 12:48 | CR ---
DATE OF CONSULTATION: 07/14/2016 HISTORY OF PRESENT ILLNESS: Alberto Osborne presented to [facility] with altered mental status following seizure activity. The patient was noted to be sitting in a chair with his eyes deviated towards the right followed by generalized tonic-clonic activity. The patient was brought to [facility] and was treated with Ativan and later on given Keppra 1000 mg and maintained on 750 mg twice a day. Head CT revealed only chronic changes, including old right basal ganglia and centrum semiovale lacunar infarction. 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 Small vessel ischemic disease. Moderate volume loss. The patient was requested have an MRI of the brain and could not sit still to have at it until tonight. The patient's MRI ended up being documented to show a right temporo-occipital subacute stroke. After careful review, I disagree with the report and recommend further workup, including a spinal tap to assess for an encephalitis. The patient's right temporal lobe appears to demonstrate increased T2 signal and swelling. The patient should be started on empiric antibiotics and acyclovir and have a lumbar puncture to assess for any underlying infection. Maintain Keppra 750 mg twice a day. The patient is hard to arouse. He keeps his eyes closed. He responds to pain and can speak in short bursts of sentences in regard to the pain. He has been noted by nursing staff to state the words "ouch" and "what the hell was that." The patient does not follow commands. His neck is able to be flexed with some paratonia noted, though nuchal rigidity cannot entirely be excluded. The patient has had a low-grade fever. No further seizure activity has been reported. I recommended that Dr. Santo Dutton, our neuroradiologist, give an opinion about the MRI that was read the previous night. PAST MEDICAL HISTORY: 1. Diastolic congestive heart failure. 2. Abdominal aortic aneurysm. 3. Atrial fibrillation. On Coumadin. With therapeutic international normalized ratio (INR). 4. Rapid ventricular response. 5. History of transient ischemic attack. 6. Chronic kidney disease. 7. Benign prostatic hyperplasia. 8. Hypertension. 9. Hyperlipidemia. 10. Umbilical hernia. 11. Diverticulosis. 12. Nonbleeding internal hemorrhoids. 13. Osteoarthritis. 14. History of hammertoes. 15. Villous adenoma. 16. Tubular adenoma. PAST SURGICAL HISTORY: 1. Right total knee replacement. 2. History of colonoscopies. 3. Hammertoe surgeries. 4. Bunionectomy remover. 5. Left total knee replacement. 6. Umbilical hernia repair. 7. Abdominal aortic aneurysm repair. FAMILY HISTORY: Noncontributory. SOCIAL HISTORY: The patient is a former smoker. Quit in 1993. Denies any alcohol or recreational drug use. REVIEW OF SYSTEMS: Unobtainable due the patient's current condition. All above findings found within the documented chart. PHYSICAL EXAMINATION: Blood pressure 189/93, pulse rate 86, respiratory rate is 22, 99 degrees Fahrenheit temperature, 96% oxygenation on nasal cannula 2 liters. Current height 6 feet 0 inches, current weight 82.2 kg. The patient's eyes are closed, although I can open them. Pupils appear to be reactive to light. Doll's eye is present. Tongue appears to be midline. The patient is breathing with his mouth open. Minimal nuchal rigidity versus paratonia is noted of the neck. The patient withdraws all four extremities to noxious stimuli. Normal tone in all four extremities. Deep tendon reflexes are 2s throughout. Babinski signs are absent. The patient reacts to noxious stimuli in all four extremities. Coordination and gait deferred. The patient is obtunded. Hard to arouse. ASSESSMENT: Altered mental status in the setting of new-onset seizure. MRI finding suggestive of swelling of the right temporal lobe with increased T2 signal. Rule out herpes simplex virus (HSV) encephalitis or other infectious etiologies of the brain. PLAN: 1. Spinal tap recommended. 2. Clarification regarding prior MRI report. 3. Electroencephalogram (EEG). 4. Continue Keppra 750 mg by mouth twice a day. 5. Start empiric antibiotic treatment and acyclovir treatment and hydrate well to avoid crystal nephropathy. 6. Will continue to follow.
[2016-07-15] MEDS: dexameTHASONE 4 MG/ML 1ML VIAL (J1100) IV SCH ×2 (13:19→19:18)
[2016-07-15] MEDS: NS 1,000 ML IV SCH ×2 (13:24→23:09)
[2016-07-15] MEDS ORDERED: ACETAMINOPHEN 650 MG SUPP As Ordered ONE (13:43)
[2016-07-15] MEDS ORDERED: ACETAMINOPHEN 650 MG SUPP PR PRN (13:45)
[2016-07-15] MEDS: WARFARIN SOD 5 MG TAB PO SCH (17:00)
[2016-07-15] MEDS: levETIRAcetam INJection 500 MG in D5W 100 ML IV SCH (17:30)
[2016-07-15] MEDS: ASPIRIN 300 MG SUPP PR SCH (21:27)
[2016-07-16] VITALS (13 sets, daily range): BP systolic 122–157; BP diastolic 71–88; O2SAT 96
[2016-07-16] MEDS ORDERED: FUROSEMIDE 20 MG/2 ML VIAL (J1940) IV ONE (01:30)
[2016-07-16] MEDS: dexameTHASONE 4 MG/ML 1ML VIAL (J1100) IV SCH ×4 (01:36→20:20)
[2016-07-16] MEDS: NITROGLYCERIN 2% OINT 1 GM *U/D* PKT TOP SCH ×4 (04:00→22:00)
[2016-07-16 05:40] LABS: MEAN CORPUSCULAR HEMOGLOBIN 28.6 pg (27.0-33.0); MEAN CORPUSCULAR HGB CONC 32.9 g/dl (32.0-36.5); MEAN CORPUSCULAR VOLUME 86.9 fl (80.0-96.0); RED CELL DISTRIBUTION WIDTH 13.9 % (11.5-14.5); WHITE BLOOD COUNT 8.6 K/mm3 (4.0-10.0)
--- NOTE | 2016-07-16 05:40 | ECGEPIP ---
Stationary ECG Study [facility] - ED Test Date: 2016-07-13 Pat Name: MERT MCCLENDON Department: Room: - Gender: M [employer]: JNoreen : 1930 Requested By: SAÚL Jay Order Number: [id number] Reading MD: Kyler Chairez Measurements Intervals [place] Rate: 110 P: FL: 0 QRS: -50 QRSD: 109 T: 66 QT: 348 QTc: 472 Interpretive Statements SINUS TACHYCARDIA LAD LEFT ANTERIOR FASCICULAR BLOCK SEPTAL MYOCARDIAL INFARCTION, PROBABLY OLD RATE CHANGE COMPARED TO 04/27/12 Electronically Signed On 07-16-2016 5:40:34 EDT by Kyler Chairez
[2016-07-16] MEDS: levETIRAcetam INJection 500 MG in D5W 100 ML IV SCH (05:41)
[2016-07-16 05:43] LABS: INR 2.93
[2016-07-16 05:50] LABS: CALCIUM LEVEL 8.3 MG/DL (8.8-10.2); CREATININE FOR GFR 1.26 MG/DL (0.70-1.30); GLOMERULAR FILTRATION RATE 57.8 (>35); POTASSIUM SERUM 3.8 MEQ/L (3.5-5.1)
--- NOTE | 2016-07-16 08:17 | IPNPDOC ---
Subjective Date Seen The patient was seen on 07/16/16. Subjective Chief Complaint/HPI The patient is a 86-year-old male admitted with a reason for visit of Altered Mental Status;Seizure. Events since last encounter He was awake and talking to his son last night. Sleeping today but opens eyes Constitutional: Reports: Fever (Tmax 101) Pulmonary: Denies: Cough, Dyspnea Gastrointestinal: Denies: Abdominal Pain, Constipation, Diarrhea, Nausea, Vomiting Objective Physical Examination General Exam: Positive: No Acute Distress (Breathing appears comfortable. Resting comfortably), Other (opens eyes to verbal and gentle tactile stimuli. Did not speak to me this morning) ENT Exam: Positive: Atraumatic Neck Exam: Positive: Supple, Negative: JVD, Lymphadenopathy, thyromegaly Chest Exam: Positive: Clear to auscultation, Normal air movement Heart Exam: Positive: Normal S1, Normal S2, Rate Normal, Negative: Murmurs, Other, Regular Rhythm, Rubs Telemetry: Positive: Atrial fibrillation (rate controlled in 70s) Abdomen Exam: Positive: BS Hypoactive, Soft, Negative: Hepatospenomegaly, Tenderness Extremity Exam: Positive: Normal pulses, Negative: Clubbing, Cyanosis, Edema, Swelling, Tenderness Skin Exam: Positive: Other skin issue (left lateral foot tiwh 3 dime sized abrasions - scabbed No surrounding erythema) Neuro Exam: Negative: Cranial Nerves 3-12 NL, Normal Speech, Strength at 5/5 X4 ext Psych Exam: Negative: Oriented x 3 Assessment /Plan Problems (1) Metabolic encephalopathy Status: Acute Problem Text: 07/16 - Patient slightly more responsive over last 12 hours. Getting Decadron for cerebral edema check ABG and ammonia level to r/o other etiologies for sedation/AMS (2) Fever Status: Acute Problem Text: T max = 101 at noon yesterday. Tylenol suppository given CXR unremarkable U/A not suggestive of UTI. U/C pending Neurology suggested that MRI findings could represent septic emboli with abscess B/C pending Echo did not mention vegetations Consult Dr. Dunne ( ID 0 for opinion regarding empiric antibiotics) (3) Mass of brain Status: Acute Problem Text: 07/16 - MRI with contrast done 07/15 shows 2.5 cm ring enhancing mass with satellite lesions highly suggestive of high grade Glioma some concern for septic emboli with abscess per Dr. Myers. Echo unremarkable. B/C pending. Tmax = 101 at noon yesterday. d/W attending empiric antibiotics Other sources for fever evaluated - CXR negative, U/C pending, U/A not highly suspicious for UTI (4) Cerebral edema Status: Acute Problem Text: This is mild per MRI reading continue Decadron IV (5) Seizure Status: Acute Problem Text: Seizure witnessed by daughter at home as well as witnessed seizure in the emergency department 07/15 - No further seizure activity. May be able to get EEG today id still desired by Neurology Continue Keppra IV - defer dose adjustments to Neurology 07/16 - No further seizure activity EEG done -results pending Kepra dose decreased some yesterday (6) Atrial fibrillation with rapid ventricular response Status: Chronic Problem Text: 07/15 - Maintain patient on home dose of Coumadin if able to take po INR therapeutic currently, but will need Lovenox if INR drifts down Unable to take Coreg currently = 2.68 today consider IV Metoprolol if Rate becomes rapid 07/16 - Coumadin remains therapeutic Rate controlled. Not taking po meds including BB (7) Diastolic congestive heart failure Status: Chronic Problem Text: 07/15 - Strict I's and O's Daily weight Intravenous fluid resuscitation with normal saline at 70 mLs per hour Currently compensated clinically 07/16 - compensated on IVF. got a dose of Lasix yesterday due top poor urine output. (8) Urine output low Status: Acute Problem Text: continue Lopez to measure I & Os, Continue IVFm at 75/hour. . Single dose of IV Lasix given yesterday with slight increase in urine output from that however BUN up today suggesting probably decreased volume status today . BP slightly high in 150s. Continue current rate of IVF for now. hold off on further diuretics unless develops CHF. Monitor urine output Repeat CPK - was elevated from seizure on admission but monitor trend to assure trending down Plan/VTE VTE Prophylaxis Ordered?: Yes (Coumadin) Plan/Urinary Catheter Reason for insertion/continuin: Critical Pt monitoring Plan IVF: Initiate (normal saline at 70 mls per hour) Diet: Make NPO Activity: Bedrest Therapy: PT, OT, Speech Diagnostics: Check Labs, Repeat Labs in AM, Obtain Cultures, MRI (brain), TTE, Other Diagnostics (EEG MRA of the brain, MRA of the carotids and vertebral arteries) Advance Directives: DNR (Spoke with Daughter - MOLST completed. Monitor for improvement over next 48 hours or so and then discuss transition to [employer] if no improvement in status) VS, I&O, 24H, Fishbone Vital Signs/I&O Vital Signs Date Time Temp Pulse Resp B/P Pulse Ox O2 Delivery O2 Flow Rate FiO2 07/16/16 06:00 72 20 153/75 96 Nasal Cannula 2.0 07/16/16 04:00 99.3 07/13/16 15:24 50 I&O- Last 24 Hours up to 6 AM 07/16/16 05:59 Intake Total 2065 ml Output Total 705 ml Balance 1360 ml Laboratory Data 24H LABS Laboratory Tests 2 07/15/16 09:35: Urine Amorphous Sediment SMALLH, Urine Appearance HAZY, Urine Color YELLOW, Urine pH 5.0, Urine Specific [place] 1.018, Urine Protein 2+H, Urine Glucose (UA ) NEGATIVE, Urine Ketones 2+H, Urine Urobilinogen 0.2, Urine Bilirubin NEGATIVE , Urine Leukocyte Esterase NEGATIVE, Urine Bacteria (Auto) 1+H, Urine Blood 3+H , Urine Calcium Carbonate Cryst(Auto) , Urine Calcium Oxalate Cryst (Auto) , Urine Calcium Phosphate Shira (Auto) , Urine Cellular Casts , Urine Cystine Crystals , Urine Granular Casts (Auto) , Urine Hyaline Casts (Auto) 0, Urine Leucine Crystals , Urine Mucus (Auto) SMALL, Urine Nitrite NEGATIVE, Urine Oval Fat Bodies (Auto) , Urine RBC (Auto) 96H, Urine Renal Epithelial Cells , Urine Sperm (Auto) , Urine Squamous Epithelial Cells 0, Urine Transitional Epithelial Cells , Urine Trichomonas (Auto) , Urine Triple Phosphate Cryst (Auto) , Urine Tyrosine Crystals , Urine Uric Acid Crystals (Auto) , Urine WBC (Auto) 1, Urine Waxy Casts (Auto) , Urine Yeast-Like Cells (Auto) 07/16/16 05:21: Anion Gap 8, Blood Urea Nitrogen 35#H, Creatinine 1.26, Sodium Level 144, Potassium Level 3.8, Chloride Level 110H, Carbon Dioxide Level 26, Calcium Level 8.3L, Glomerular Filtration Rate 57.8, Prothromb Time International Ratio 2.93, Prothrombin Time 30.6H CBC/BMP Laboratory Tests 07/16/16 05:21 Calcium Level 8.3 L, Red Blood Count 4.62, Mean Corpuscular Volume 86.9, Mean Corpuscular Hemoglobin 28.6, Mean Corpuscular Hemoglobin Concent 32.9, Red Cell Distribution Width 13.9 Microbiology Microbiology 07/15/16 Blood Culture, Received Pending 07/15/16 Blood Culture, Received Pending 07/15/16 Urine Culture, Received Pending 07/13/16 Urine Culture - Final, Complete ZAC LARA PA-C Jul 16, 2016 08:17
[2016-07-16] MEDS: CARVedilol 3.125 MG TAB PO SCH ×2 (08:59→20:19)
[2016-07-16] MEDS: PANTOPRAZOLE 40MG INJ (PROTONIX) (C9113) IV SCH (08:59)
[2016-07-16] MEDS: TAMSULOSIN 0.4 MG CAP PO SCH (08:59)
[2016-07-16] MEDS: VITAMIN D 1,000 INTERNATIONAL UNITS TABLET PO SCH (09:00)
[2016-07-16] MEDS: ATORVASTATIN 20 MG TAB PO SCH (09:00)
[2016-07-16 10:50] LABS: ABG HCO3 24.7 MEQ/L (22.0-26.0); ABG PARTIAL PRESSURE CO2 40.5 mmHg (35.0-45.0); ABG PARTIAL PRESSURE O2 94.1 mmHg (75.0-100.0); ABG STANDARD HCO3 24.5 MEQ/L (22.0-26.0); ABG TOTAL CO2 25.9 MEQ/L (23.0-31.0); ABG pH (ARTERIAL) 7.403 UNITS (7.350-7.450)
[2016-07-16] MEDS: NS 1,000 ML IV SCH (12:38)
--- NOTE | 2016-07-16 16:19 | CR ---
DATE OF CONSULTATION: 07/16/2016 Infectious disease consultation regarding brain lesion and fever. HISTORY OF PRESENT ILLNESS: Mr. Osborne is a pleasant 86-year-old white man who was brought into the emergency room with altered mental status. He is usually pretty independent and lives alone. His daughter visits him more than three times a day. He was doing well up until about a couple weeks prior to admission when he had a couple episodes where she would notice that he was using the wrong word or was having some expressive aphasia. He denied having any headache, fever, chills. No invasive procedures. No cystoscopy or colonoscopy. He denied any urinary symptoms, cough, shortness of breath, nausea, vomiting or diarrhea. He did not have headache, neck stiffness. The patient in the emergency room had a witnessed seizure and then remained post-ictal up until today. For the past couple days he was barely responsive. This morning he woke up, he knew he was in the hospital. He could tell me that his doctor is Dr. Veronica, that his appointment is on August 27, he only sees him every 6 months, that he is pretty healthy. He denies headache or neck stiffness currently. He feels fairly well, he is still in the intensive care unit (ICU). He was seen in consultation by Dr. Sewell and Dr. Peñaloza and Dr. Dutton had read his MRI who believes that this is not an infectious process in his brain but most likely malignancy. The day after admission he had a fever up to 101 but today he has not had any fevers. PAST MEDICAL HISTORY: Significant for diastolic congestive heart failure, abdominal aortic aneurysm that was repaired in [address] Plaza through a stent percutaneously, atrial fibrillation with rapid ventricular response, history of transient ischemic attack (TIA), chronic kidney disease, BPH, hypertension, dyslipidemia, umbilical hernia, diverticulosis with internal hemorrhoids, osteoarthritis status post bilateral knee replacement, history of hammer toes, colonoscopy showed tubular adenoma and villous adenoma. PAST SURGICAL HISTORY: Bilateral knee replacements, colonoscopy, hammer toe surgery, umbilical hernia repair and abdominal aortic aneurysm repair. SOCIAL HISTORY: He quit smoking in 1993. He does not drink. He is a . His over 9 years ago. His daughter lives two houses down and visits him quite often. He drives. 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 REVIEW OF SYSTEMS: Currently denies any nausea, vomiting, diarrhea, abdominal pain, chest pain, headache, no neck stiffness. No urinary symptoms. ALLERGIES: ENALAPRIL. MEDICATIONS: - aspirin 300 mg daily - Keppra 500 mg IV every 12 hours - Decadron 4 mg IV every 6 hours - Protonix 40 mg IV daily - Coumadin 2.5 mg daily - Lipitor 20 mg daily - vitamin D 1000 units daily - Flomax 0.4 mg daily - Nitrobid topical every 6 hours - Coreg 3.125 mg daily by mouth twice a day - acetaminophen as needed LABORATORY DATA: White count on admission 07/13/2016 was 10.4, currently 8.6, hemoglobin 13.2, hematocrit 40.1, platelets 198. ESR 46. Sodium 144, potassium 3.8, chloride 110, bicarbonate 26, BUN 35, creatinine 1.26, glucose 128, calcium 8.3, CPK 326 down from 1588, ammonia 19, CRP 23.9. Blood cultures drawn 07/15/2016 and 07/16/2016 are all pending. Urine cultures done twice are no growth, one on 07/13/2016 and one on 07/15/2016. Chest x-ray chronic stable changes. No obvious consolidations. Brain MRI done with contrast on 07/15/2016 shows a 2.5-cm ring-enhancing mass in the left temporal lobe with surrounding satellite lesions that are 6-8 mm in size with very little surrounding edema. There is mass effect with effacement of the overlying cortical sulci. 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 According to Dr. Dutton, he stated that this is not infectious and not a typical location for herpes encephalitis either. PHYSICAL EXAMINATION; Temperature is 98.2, pulse 72, respirations 18, blood pressure 146/83, oxygen saturation 96% on 2 liters nasal cannula. Heart normal S1, S2. No murmurs, rubs or gallops appreciated. Lungs are clear. No wheezes or rhonchi. Abdomen is soft, nontender. No hepatosplenomegaly. Genitourinary () normal. He has a Lopez catheter. Extremities no clubbing, cyanosis or edema. He can move all extremities appropriately. He is alert and oriented. He is able to give a history. He is somewhat sluggish at times but mostly appropriate. IMPRESSION: This is an 86-year-old gentleman who was admitted with new onset seizure and was found on MRI to have a ring enhancing mass in the left temporal lobe with some satellite lesions very suggestive of malignancy and high-grade glioma per Dr. Dutton. Dr. Sewell and Dr. Peñaloza have already seen the patient as well. I do not think this is infectious in etiology. He had fever 24 hours after admission which could have been aspiration after the seizures and these have resolved. He does not have a white count and for the past 24 hours he has not had a recurrent fever. Meningoencephalitis is unlikely. PLAN: Agree with holding off on antibiotics. We have three sets of blood cultures pending. I would suggest obtaining a brain biopsy to make a diagnosis and further treatment will depend on the findings. His daughter, Lon Treadwell, stated that he would not want to have chemotherapy or radiation, but she agrees that the biopsy would be indicated and then we could offer her the treatment options. Dr. Peñaloza is willing to do the biopsy on Tuesday. His INR is supratherapeutic and needs to be corrected prior. Also the patient does not need a Lopez catheter. He is alert and oriented and Lopez catheter could be removed to avoid catheter associated urinary tract infection (UTI). Case has been discussed with Dr. Veronica, Dr. Peñaloza, and Dr. Sewell and MRI was reviewed with Dr. Dutton.
--- NOTE | 2016-07-16 16:30 | EEG ---
DATE OF PROCEDURE: 07/15/2016 REFERRING PHYSICIAN: Dr. Marco Antonio Veronica DIAGNOSIS: Left temporal lobe mass, seizures. EEG NUMBER: [id number] HISTORY: Patient is an 86-year-old man who was admitted at [facility] due to seizures and was found to have left temporal lobe mass. This EEG was done to rule out epileptic potential. He is currently taking Keppra, carvedilol, Lipitor, Flomax, Coumadin, dexamethasone, etc. TECHNICAL DESCRIPTION: This digital EEG was recorded by 21 scalp, ear and two EKG electrodes and was reviewed in bipolar and referential montages following reformatting in 10-20 international electrode placement system. INTERPRETATION: The patient was noted to be awake and drowsy stage during this EEG. Background rhythm consisted of 6 Hz theta activity measuring 15 - 50 microvolts in amplitude. Stage II sleep was reviewed and showed attenuation of sleep activity in left parietal and temporal head region. Hyperventilation could not be performed. Photic stimulation remained unremarkable. EKG revealed irregular heart rate and atrial fibrillation. Left temporal epileptiform discharges were seen. CONCLUSION: This EEG in mostly a drowsy states is abnormal due to presence of left temporal attenuation of voltage with rare epileptiform discharges consistent with focal cortical structural or functional abnormality with epileptic potential. Mild generalized slowing is likely indicated of nonspecific diffuse cerebral dysfunction suggesting encephalopathy. Clinical correlation is recommended.
[2016-07-16] MEDS ORDERED: GASTROGRAFIN SOLUTION 30ML (Q9963) PO ONE (18:30)
[2016-07-16] MEDS ORDERED: GASTROGRAFIN SOLUTION 30ML PO ONE (19:00)
[2016-07-16] MEDS ORDERED: ISOVUE-370 76% 100ML VIAL (Q9967) As Ordered ONE (19:26)
[2016-07-16] MEDS: levETIRAcetam INJection 750 MG in D5W 100 ML IV SCH (20:20)
[2016-07-16] MEDS: ASPIRIN 300 MG SUPP PR SCH (20:20)
--- NOTE | 2016-07-16 20:33 | REP ---
Clinical: Neoplasm. Technique: Axial contrast enhanced images from the thoracic inlet to the upper abdomen using 100 ml Isovue 370 intravenous contrast material with coronal and sagittal re-formations. Comparison: None. Findings: The lung block demonstrate scattered chronic changes including subtle left upper lobe ground-glass opacities and bibasilar scarring / interstitial disease. There is no evidence for acute consolidation, significant nodule or mass lesion. No pleural effusion or pneumothorax. Tracheobronchial tree is patent - small amount of mucus identified in the mid to distal trachea. Evaluation of the mediastinum demonstrates a 2.7 x 2.0 cm soft tissue lesion in the anterior mediastinum which may reflect solitary lymph node or residual thymic tissue. No further axillary, hilar, or mediastinal adenopathy is suggested or identified. Cardiomegaly is noted along with atherosclerotic changes to the thoracic aorta and coronary arteries. No pericardial effusion. No thoracic aortic aneurysm or dissection. Thyroid gland is unremarkable. Musculoskeletal structures demonstrate age-related degenerative changes without focal osseous abnormality. Impression: 1. A 2.7 cm soft tissue lesion in the anterior mediastinum. Differential diagnosis includes solitary lymph node, residual thymic tissue, duplication cyst. 2. Cardiomegaly with atherosclerotic changes to the thoracic aorta and coronary arteries. 3. Lung block demonstrate scattered chronic changes without significant consolidation, nodule or mass lesion. Signed by Luis Rahman MD 07/16/2016 08:24 P
--- NOTE | 2016-07-16 20:40 | REP ---
Clinical: Neoplasm. Technique: Axial contrast enhanced images from the lung bases to the pubic symphysis using oral and 100 ml Isovue 370 intravenous contrast material with precontrast and delayed images of the abdomen as well as coronal and sagittal re-formations. Comparison: None. Findings: Lung bases demonstrate chronic changes along with cardiomegaly and atherosclerotic changes to the thoracic aorta and coronary arteries. Liver demonstrates 1 cm cyst in the medial segment left lobe. Spleen, pancreas, and bilateral adrenal glands are normal. Cholelithiasis noted without CT evidence for acute cholecystitis. Right kidney appears atrophic with small cysts measuring up to 1 cm. Left kidney demonstrates multiple cysts including parapelvic cyst measuring 3.3 cm maximal diameter. The enteric system is without obstruction or acute inflammatory process. Normal terminal ileum and appendix identified in the right lower quadrant. Colonic and predominately sigmoid diverticulosis noted without acute diverticulitis. Pelvis demonstrates a Lopez catheter in collapsed bladder. Abdominal aorta demonstrates atherosclerotic changes including evidence for prior aortic aneurysm repair including aortic-bilateral iliac stent grafts. No obvious endoleak into the excluded aortic aneurysm. No free air. No ascites. No adenopathy. No obvious mass lesion. Small fat containing left inguinal hernia. Skeletal structures demonstrate diffuse degenerative changes without focal osseous abnormality. Impression: 1. No acute intra-abdominal or pelvic pathology appreciated. 2. Chronic changes include right renal atrophy, hepatic and bilateral renal cysts, sigmoid diverticulosis, aorto-iliac stent grafts, and degenerative changes to the musculoskeletal structures. Signed by Luis Rahman MD 07/16/2016 08:31 P
[2016-07-17] VITALS (14 sets, daily range): BP systolic 138–172; BP diastolic 67–89
[2016-07-17] MEDS: NS 1,000 ML IV SCH ×3 (02:40→23:24)
[2016-07-17] MEDS: dexameTHASONE 4 MG/ML 1ML VIAL (J1100) IV SCH ×4 (02:40→20:38)
--- NOTE | 2016-07-17 03:50 | REPUSA ---
CLINICAL HISTORY: AMS. TECHNIQUE: Multiple axial CT images were obtained through the brain without IV contrast material. COMMENTS: There is normal configuration of sella turcica. There are no intra or extra-axial collections. There is no mass effect or midline shift. There is no evidence of hematoma formation. No hydrocephalus is p resent. The ventricles are symmetrical. No abnormal calcifications are present. There is diffuse age-appropriate cerebellar and cerebral atrophy with proportionally dilated ventricl es and cortical sulci. There are bilateral confluent periventricular and subcortical white matter hypolucencies compatible w ith severe chronic microvascular disease. Otherwise, no significant focal abnormalities are seen either in the posterior fossa or supratentoria l compartment. IMPRESSION: 1. Severe cerebellar and cerebral atrophy. 2. Severe chronic microvascular disease. 3. No evidence of acute intracranial pathology. Thank you for your kind referral of this patient.
[2016-07-17] MEDS: NITROGLYCERIN 2% OINT 1 GM *U/D* PKT TOP SCH ×4 (04:42→21:30)
[2016-07-17 04:51] LABS: MEAN CORPUSCULAR HEMOGLOBIN 28.2 pg (27.0-33.0); MEAN CORPUSCULAR HGB CONC 32.4 g/dl (32.0-36.5); MEAN CORPUSCULAR VOLUME 87.1 fl (80.0-96.0); RED CELL DISTRIBUTION WIDTH 14.3 % (11.5-14.5); WHITE BLOOD COUNT 9.5 K/mm3 (4.0-10.0)
[2016-07-17 04:57] LABS: INR 2.82
[2016-07-17 05:11] LABS: CREATININE FOR GFR 1.42 MG/DL (0.70-1.30); GLOMERULAR FILTRATION RATE 50.3 (>35); POTASSIUM SERUM 4.2 MEQ/L (3.5-5.1)
[2016-07-17] MEDS: levETIRAcetam INJection 750 MG in D5W 100 ML IV SCH ×2 (08:39→20:38)
[2016-07-17] MEDS: ATORVASTATIN 20 MG TAB PO SCH (08:40)
[2016-07-17] MEDS: TAMSULOSIN 0.4 MG CAP PO SCH (08:40)
[2016-07-17] MEDS: VITAMIN D 1,000 INTERNATIONAL UNITS TABLET PO SCH (08:40)
[2016-07-17] MEDS: CARVedilol 3.125 MG TAB PO SCH ×2 (08:41→20:37)
[2016-07-17] MEDS: PANTOPRAZOLE 40MG TAB (PROTONIX) PO SCH (08:41)
[2016-07-17] MEDS ORDERED: ASPIRIN 325 MG TAB PO SCH ×2 (09:00→21:00)
--- NOTE | 2016-07-17 12:03 | IPNPDOC ---
Subjective Date Seen The patient was seen on 07/17/16. Subjective Chief Complaint/HPI The patient is a 86-year-old male admitted with a reason for visit of Altered Mental Status;Seizure. Events since last encounter Patient is alert this am. No headache, vision changes, generalized weakness. thinks his right hand feels a little week c/w left. Otherwise no complaints Constitutional: Denies: Chills, Fever Eyes: Denies: Vision change ENT: Denies: Head Aches Pulmonary: Denies: Cough, Dyspnea Cardiovascular: Denies: Chest Pain, Orthopnea, Palpitations Gastrointestinal: Denies: Abdominal Pain, Constipation, Diarrhea, Nausea, Vomiting Objective Physical Examination General Exam: Positive: Alert (Talking this am. Speech a little thick at times and slight confusion about timing of events, but oriented to person and place. ), No Acute Distress ENT Exam: Positive: Atraumatic Neck Exam: Positive: Supple Chest Exam: Positive: Clear to auscultation, Normal air movement Heart Exam: Positive: Normal S1, Normal S2, Rate Normal Telemetry: Positive: Atrial fibrillation Abdomen Exam: Positive: BS Hypoactive, Soft Extremity Exam: Positive: Normal pulses Skin Exam: Positive: Other skin issue Neuro Exam: Negative: Cranial Nerves 3-12 NL, Normal Speech, Strength at 5/5 X4 ext Psych Exam: Negative: Oriented x 3 Assessment /Plan Problems (1) Acute kidney failure Status: Acute Problem Text: Creatinine has gone up after CT chest, abd , pelvis with IV contrast. Increase IVF to flush kidneys and monitor renal function (2) Metabolic encephalopathy Status: Acute Response to Treatment: Improving Problem Text: 07/17 - Mental status improving. suspect his AMS was related to post-ictal state as well as some brain compression from the brain mass with mild cerebral edema. Continue Decadron IV for now 07/16 - Patient slightly more responsive over last 12 hours. Getting Decadron for cerebral edema check ABG and ammonia level to r/o other etiologies for sedation/AMS (3) Fever Status: Resolved Problem Text: 07/17 - No further fever. WBC normal B/C negative 07/16 T max = 101 at noon yesterday. Tylenol suppository given CXR unremarkable U/A not suggestive of UTI. U/C pending Neurology suggested that MRI findings could represent septic emboli with abscess B/C pending Echo did not mention vegetations Consult Dr. Dunne ( ID 0 for opinion regarding empiric antibiotics) (4) Mass of brain Status: Acute Problem Text: 07/17 - Patient and family do not want to pursue biopsy they have a meeting with Neurosurgery today to discuss further, but srini will not get biospy CT chest/abd/pelvis only shows large ? 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 Myers. Echo unremarkable. B/C pending. Tmax = 101 at noon yesterday. d/W attending empiric antibiotics Other sources for fever evaluated - CXR negative, U/C pending, U/A not highly suspicious for UTI (5) Cerebral edema Status: Acute Problem Text: Brain compression related to mass with mild cerebral edema continue Decadron IV (6) Seizure Status: Acute Problem Text: Seizure witnessed by daughter at home as well as witnessed seizure in the emergency department 07/15 - No further seizure activity. May be able to get EEG today id still desired by Neurology Continue Keppra IV - defer dose adjustments to Neurology 07/16 - No further seizure activity EEG done -results pending Kepra dose decreased some yesterday 07/17 - No further seizures on Keppra IV per Neurology (7) Atrial fibrillation with rapid ventricular response Status: Chronic Problem Text: 07/15 - Maintain patient on home dose of Coumadin if able to take po INR therapeutic currently, but will need Lovenox if INR drifts down Unable to take Coreg currently = 2.68 today consider IV Metoprolol if Rate becomes rapid 07/16 - Coumadin remains therapeutic Rate controlled. Not taking po meds including BB (8) Diastolic congestive heart failure Status: Chronic Problem Text: 07/15 - Strict I's and O's Daily weight Intravenous fluid resuscitation with normal saline at 70 mLs per hour Currently compensated clinically 07/16 - compensated on IVF. got a dose of Lasix yesterday due top poor urine output. (9) Urine output low Status: Resolved Problem Text: 07/17 - improved continue Lopez to measure I & Os, Continue IVFm at 75/hour. . Single dose of IV Lasix given yesterday with slight increase in urine output from that however BUN up today suggesting probably decreased volume status today . BP slightly high in 150s. Continue current rate of IVF for now. hold off on further diuretics unless develops CHF. Monitor urine output Repeat CPK - was elevated from seizure on admission but monitor trend to assure trending down Plan/VTE VTE Prophylaxis Ordered?: Yes (Coumadin) Plan/Urinary Catheter Reason for insertion/continuin: Critical Pt monitoring Plan Therapy: PT, OT, Speech Diagnostics: MRI (brain) Advance Directives: DNR (Spoke with Daughter - MOLST completed. Monitor for improvement over next 48 hours or so and then discuss transition to [employer] if no improvement in status) Disposition move to PCU VS, I&O, 24H, Fishbone Vital Signs/I&O Vital Signs Date Time Temp Pulse Resp B/P Pulse Ox O2 Delivery O2 Flow Rate FiO2 07/17/16 10:00 145/83 07/17/16 10:00 68 20 95 Room Air 07/17/16 08:00 97.7 07/16/16 12:00 2.0 07/13/16 15:24 50 I&O- Last 24 Hours up to 6 AM 07/17/16 06:00 Intake Total 2946.25 ml Output Total 850 ml Balance 2096.25 ml Laboratory Data 24H LABS Laboratory Tests 2 07/17/16 04:35: Anion Gap 6L, Blood Urea Nitrogen 48H, Creatinine 1.42H, Sodium Level 144, Potassium Level 4.2, Chloride Level 111H, Carbon Dioxide Level 27, Calcium Level 8.0L, Glomerular Filtration Rate 50.3, Prothromb Time International Ratio 2.82, Prothrombin Time 29.7H CBC/BMP Laboratory Tests 07/17/16 04:35 Calcium Level 8.0 L, Red Blood Count 4.54, Mean Corpuscular Volume 87.1, Mean Corpuscular Hemoglobin 28.2, Mean Corpuscular Hemoglobin Concent 32.4, Red Cell Distribution Width 14.3 Microbiology Microbiology 07/16/16 Blood Culture - Preliminary, Resulted No growth after 24 hours . All specim... 07/15/16 Blood Culture - Preliminary, Resulted No growth after 24 hours . All specim... 07/15/16 Blood Culture - Preliminary, Resulted No growth after 24 hours . All specim... 07/15/16 Urine Culture - Final, Complete 07/13/16 Urine Culture - Final, Complete ZAC LARA PA-C Jul 17, 2016 12:02
[2016-07-18] VITALS (8 sets, daily range): BP systolic 149–178; BP diastolic 79–92
[2016-07-18] MEDS: dexameTHASONE 4 MG/ML 1ML VIAL (J1100) IV SCH ×4 (02:41→20:18)
[2016-07-18 04:24] LABS: MEAN CORPUSCULAR HEMOGLOBIN 28.8 pg (27.0-33.0); MEAN CORPUSCULAR HGB CONC 32.5 g/dl (32.0-36.5); MEAN CORPUSCULAR VOLUME 88.7 fl (80.0-96.0); RED CELL DISTRIBUTION WIDTH 14.2 % (11.5-14.5); WHITE BLOOD COUNT 7.5 K/mm3 (4.0-10.0)
[2016-07-18 04:40] LABS: CALCIUM LEVEL 7.8 MG/DL (8.8-10.2); CREATININE FOR GFR 1.34 MG/DL (0.70-1.30); GLOMERULAR FILTRATION RATE 53.8 (>35); POTASSIUM SERUM 4.5 MEQ/L (3.5-5.1)
[2016-07-18 04:56] LABS: INR 3.15
[2016-07-18] MEDS: NITROGLYCERIN 2% OINT 1 GM *U/D* PKT TOP SCH ×2 (05:29→09:15)
[2016-07-18] MEDS: NS 1,000 ML IV SCH ×2 (08:15→20:18)
[2016-07-18] MEDS: TAMSULOSIN 0.4 MG CAP PO SCH (08:42)
[2016-07-18] MEDS: CARVedilol 3.125 MG TAB PO SCH ×2 (08:42→20:18)
[2016-07-18] MEDS: VITAMIN D 1,000 INTERNATIONAL UNITS TABLET PO SCH (08:42)
[2016-07-18] MEDS: PANTOPRAZOLE 40MG TAB (PROTONIX) PO SCH (08:42)
[2016-07-18] MEDS: ATORVASTATIN 20 MG TAB PO SCH (08:43)
[2016-07-18] MEDS: levETIRAcetam INJection 750 MG in D5W 100 ML IV SCH ×2 (08:43→20:18)
--- NOTE | 2016-07-18 12:23 | IPNPDOC ---
Subjective Date Seen The patient was seen on 07/18/16. Subjective Chief Complaint/HPI The patient is a 86-year-old male admitted with a reason for visit of Altered Mental Status;Seizure. Events since last encounter He is a little more confused today, but no complaints. Constitutional: Denies: Chills, Fever Pulmonary: Denies: Cough, Dyspnea Cardiovascular: Denies: Chest Pain, Orthopnea, Palpitations Gastrointestinal: Denies: Abdominal Pain, Constipation, Diarrhea, Nausea, Vomiting Objective Physical Examination General Exam: Positive: Alert (Talking this am. Speech a little thick at times and slight confusion about timing of events, but oriented to person and place. ), No Acute Distress ENT Exam: Positive: Atraumatic Neck Exam: Positive: Supple Chest Exam: Positive: Clear to auscultation, Normal air movement Heart Exam: Positive: Normal S1, Normal S2, Rate Normal Telemetry: Positive: Atrial fibrillation Abdomen Exam: Positive: BS Hypoactive, Soft Extremity Exam: Positive: Normal pulses Skin Exam: Positive: Other skin issue Neuro Exam: Negative: Cranial Nerves 3-12 NL, Normal Speech, Strength at 5/5 X4 ext Psych Exam: Negative: Oriented x 3 Assessment /Plan Problems (1) Mass of brain Status: Acute Problem Text: 07/18 - Dr. Lara and I met with daughter Lon and grandson again this morning Alberto does not want to pursue biopsy. We are all in agreement with that for now. We will monitor his neurological status going forward and consider repeat MRI in a couple of weeks to assess change in brain mass May consider hospice as outpatient but he is NOT [employer] currently. He is DNR/DNI We will hold off on Oncology eval b/c it is unlikely they will have much to offer without tissue diagnosis Continue PT/OT - he may need ST rehab or perhaps PMR Repeat ST eval to see if he can advance the consistently of his diet (currently on pureed) 07/17 - Patient and family do not want to pursue biopsy they have a meeting with Neurosurgery today to discuss further, but srini will not get biospy CT chest/abd/pelvis only shows large ? 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 Myers. Echo unremarkable. B/C pending. Tmax = 101 at noon yesterday. d/W attending empiric antibiotics Other sources for fever evaluated - CXR negative, U/C pending, U/A not highly suspicious for UTI (2) Acute kidney failure Status: Acute Problem Text: Creatinine has gone up after CT chest, abd , pelvis with IV contrast. 07/18 - Renal function improving with IVF. Taking some po, but not much yet continue IVF Lopez d/c'd today - so monitoring urine output (3) Metabolic encephalopathy Status: Acute Response to Treatment: Improving Problem Text: 07/18 - Mental status improving. suspect his AMS was related to post-ictal state as well as some brain swelling from the brain mass with mild cerebral edema. Continue Decadron IV for now Discuss with Neurology when we can switch to oral steroids. (4) Cerebral edema Status: Acute Problem Text: Brain swelling related to mass with mild cerebral edema and brain compression continue Decadron IV (5) Seizure Status: Acute Problem Text: Seizure witnessed by daughter at home as well as witnessed seizure in the emergency department 07/15 - No further seizure activity. May be able to get EEG today id still desired by Neurology Continue Keppra IV - defer dose adjustments to Neurology 07/16 - No further seizure activity EEG done -results pending Kepra dose decreased some yesterday 07/17 - No further seizures on Keppra IV per Neurology 07/18 - IV Keppra dose was increase back up to 750 mg IV by Neurology Discuss with Neurology when we can switch to po (6) Atrial fibrillation with rapid ventricular response Status: Chronic Problem Text: 07/15 - Maintain patient on home dose of Coumadin if able to take po INR therapeutic currently, but will need Lovenox if INR drifts down Unable to take Coreg currently = 2.68 today consider IV Metoprolol if Rate becomes rapid 07/16 - Coumadin remains therapeutic Rate controlled. Not taking po meds including BB 07/18 - Coumadin has risen despite not getting Coumadin since admission. INR is supratherapeutic. INR = 3.15. Elevation is likely related to po po intake. He is just starting to eat. Give small dose of vitamin K today in effort to prevent bleeding into brain mass Goal INR would be 2 - 2.5 (7) Diastolic congestive heart failure Status: Chronic Problem Text: 07/15 - Strict I's and O's Daily weight Intravenous fluid resuscitation with normal saline at 70 mLs per hour Currently compensated clinically 07/16 - compensated on IVF. got a dose of Lasix yesterday due top poor urine output. 07/17 - He remains compensated on IVF (8) HTN (hypertension) Status: Chronic Response to Treatment: Worse Problem Text: BP high despite Metoprolol Stop NTG paste now that taking pos. Add Amlodipine He was on Losartan at home per Dr. Gong, but I would not restart that until his renal function returns to normal and he is drinking adequately Plan/VTE VTE Prophylaxis Ordered?: Yes (Coumadin) Plan/Urinary Catheter Reason for insertion/continuin: Critical Pt monitoring Plan Therapy: PT, OT, Speech Diagnostics: MRI (brain) Advance Directives: DNR (Spoke with Daughter - MOLST completed. Monitor for improvement over next 48 hours or so and then discuss transition to [employer] if no improvement in status) Disposition Move to Floor Continue PT/OT VS, I&O, 24H, Fishbone Vital Signs/I&O Vital Signs Date Time Temp Pulse Resp B/P Pulse Ox O2 Delivery O2 Flow Rate FiO2 07/18/16 09:15 151/79 07/18/16 08:42 58 07/18/16 08:00 98.0 20 93 Room Air 07/18/16 00:00 2.0 07/13/16 15:24 50 I&O- Last 24 Hours up to 6 AM 07/18/16 06:00 Intake Total 3285 ml Output Total 875 ml Balance 2410 ml Laboratory Data 24H LABS Laboratory Tests 2 07/18/16 04:15: Anion Gap 5L, Blood Urea Nitrogen 48H, Creatinine 1.34H, Sodium Level 146H, Potassium Level 4.5, Chloride Level 113H, Carbon Dioxide Level 28, Calcium Level 7.8L, Glomerular Filtration Rate 53.8, Prothromb Time International Ratio 3.15, Prothrombin Time 32.4H CBC/BMP Laboratory Tests 07/18/16 04:15 Calcium Level 7.8 L, Red Blood Count 4.41, Mean Corpuscular Volume 88.7, Mean Corpuscular Hemoglobin 28.8, Mean Corpuscular Hemoglobin Concent 32.5, Red Cell Distribution Width 14.2 Microbiology Microbiology 07/16/16 Blood Culture - Preliminary, Resulted No Growth after 48 hours. All Specime... 07/15/16 Blood Culture - Preliminary, Resulted No Growth after 48 hours. All Specime... 07/15/16 Blood Culture - Preliminary, Resulted No Growth after 48 hours. All Specime... 07/15/16 Urine Culture - Final, Complete 07/13/16 Urine Culture - Final, Complete ZAC LARA PA-C Jul 18, 2016 12:23
[2016-07-18] MEDS ORDERED: PHYTONADIONE 1.25 MG 1/4 TAB PO ONE (12:30)
[2016-07-18] MEDS: amLODIPine 5 MG TAB PO SCH (14:01)
--- NOTE | 2016-07-18 14:08 | IPN ---
DATE: 07/18/2016 NEUROSURGERY Subjective: The patient was seen at the bedside today. He is accompanied by many family members today. He denies any new symptoms. He states his fatigue has been improving. This is also noted by his family members. He states he continues to feel weakness in his lower extremities requiring assistance to move from the bed to his chair. He denies any headaches, any numbness or dizziness, any vision changes or any agitation. He has been eating and drinking well. He has not been ambulating yet. Objective: Alberto appears to be doing much better today than previously seen yesterday. He was sitting comfortably in the chair in no acute distress. He is participating in the conversation appropriately. Although his speech was slow, it was appropriate to the conversation. No new findings on exam today. His blood pressure has been hypertensive. It is noted he had a maximum temperature of 101 on 07/15/2016. He has been afebrile yesterday and today so far. Imaging is noted. LABS: Chemistry: His sodium is elevated at 146. His BUN continues to be elevated at 48 today as it was yesterday. His creatinine is still elevated, but it appears this is trending down from 1.42 yesterday to 1.34 today. Likely this increase attributed to the contrast used during imaging. His white blood cell count was within normal limits. His hemoglobin and hematocrit are low. It appears that this has been stable. His urine on 07/15/2016 showed that he had protein, ketones and blood. It appears that the ketones in the blood have been increasing. He did have +1 bacteria, but no leukocytes. His urine culture was negative. This is not highly suspicious for a urinary tract infection (UTI). His blood gases have normalized on 07/16/2016. His blood cultures so far have been negative. It appears his mental status is improving. His family states they are happy with his progress. Discussed his future goals with his family today. They state they all are in agreement to avoid the biopsy at this time. They state their main goal is physical therapy with goals of increasing strength and improving his gait. They state they have no current questions at a neurosurgical standpoint. All other questions have been addressed to family's satisfaction. ARLETTE
[2016-07-18] MEDS ORDERED: ASPIRIN 600 MG SUPP PR SCH (21:00)
[2016-07-19] MEDS: dexameTHASONE 4 MG/ML 1ML VIAL (J1100) IV SCH ×4 (01:39→20:28)
[2016-07-19] MEDS: NS 1,000 ML IV SCH ×2 (03:27→14:45)
[2016-07-19 06:00] VITALS: BP 168/86
[2016-07-19 06:04] LABS: MEAN CORPUSCULAR HGB CONC 32.3 g/dl (32.0-36.5); MEAN CORPUSCULAR VOLUME 86.8 fl (80.0-96.0); RED CELL DISTRIBUTION WIDTH 13.9 % (11.5-14.5); WHITE BLOOD COUNT 5.6 K/mm3 (4.0-10.0)
[2016-07-19 06:10] LABS: INR 1.87
[2016-07-19 06:20] LABS: ANION GAP 8 MEQ/L (8-16); BLOOD UREA NITROGEN 42 MG/DL (7-18); CALCIUM LEVEL 7.9 MG/DL (8.8-10.2); CARBON DIOXIDE LEVEL 27 MEQ/L (21-32); CHLORIDE LEVEL 112 MEQ/L (98-107); CREATININE FOR GFR 1.18 MG/DL (0.70-1.30); GLOMERULAR FILTRATION RATE > 60.0 (>35); GLUCOSE, FASTING 114 MG/DL (83-110); POTASSIUM SERUM 4.4 MEQ/L (3.5-5.1); SODIUM LEVEL 147 MEQ/L (136-145)
[2016-07-19] MEDS: levETIRAcetam INJection 750 MG in D5W 100 ML IV SCH ×2 (08:25→20:42)
[2016-07-19] MEDS: CARVedilol 3.125 MG TAB PO SCH ×2 (08:25→20:42)
[2016-07-19] MEDS: amLODIPine 5 MG TAB PO SCH (08:25)
[2016-07-19] MEDS: VITAMIN D 1,000 INTERNATIONAL UNITS TABLET PO SCH (08:25)
[2016-07-19] MEDS: TAMSULOSIN 0.4 MG CAP PO SCH (08:25)
[2016-07-19] MEDS: PANTOPRAZOLE 40MG TAB (PROTONIX) PO SCH (08:25)
[2016-07-19] MEDS: ATORVASTATIN 20 MG TAB PO SCH (08:25)
--- NOTE | 2016-07-19 09:01 | REP ---
CT NECK WITH CONTRAST: HISTORY: Metastasis. CONTRAST: Isovue 370, 75 mL. A 2 cm hypodensity is present in the left temporal lobe. This corresponds to the ring enhancing lesion seen in the previous MR examination. Calcification is present in the left tonsil. This is secondary to previous inflammatory disease. The naso-, otilia-, and hypopharynx, larynx and subglottic trachea are otherwise normal in appearance. The salivary and thyroid glands are normal. Small lymph nodes less than 1 cm in size are present in the internal jugular chains, posterior triangles and submandibular areas. Atherosclerotic calcification is present at the carotid bifurcations. Degenerative change is present in the cervical spine. Scarring is present in the left lung apex. A retention cyst or polyp is present in the right maxillary sinus. IMPRESSION: 1. There is no neck mass or adenopathy. 2. There is a 2 cm hypodensity in the left temporal lobe corresponding to the ring enhancing mass in the recent MR examination. Signed by Santo Dutton MD 07/19/2016 09:19 A
--- NOTE | 2016-07-19 11:52 | IPNPDOC ---
Subjective Date Seen The patient was seen on 07/19/16. Subjective Chief Complaint/HPI The patient is a 86-year-old male admitted with a reason for visit of Altered Mental Status;Seizure. Events since last encounter Pt sitting in chair. Sleepy. Family at side. Note he has been confused some. Pt denies Pain, CP, SOB, Abd pain. Constitutional: Denies: Fever Pulmonary: Denies: Dyspnea Cardiovascular: Denies: Chest Pain Gastrointestinal: Denies: Abdominal Pain, Nausea, Vomiting Objective Physical Examination General Exam: Positive: Alert, No Acute Distress, Other ENT Exam: Positive: Atraumatic Neck Exam: Positive: Supple, Negative: JVD, Lymphadenopathy, thyromegaly Chest Exam: Positive: Clear to auscultation, Normal air movement Heart Exam: Positive: Normal S1, Normal S2, Negative: Murmurs, Other, Rate Normal, Regular Rhythm, Rubs Abdomen Exam: Positive: BS Hypoactive, Soft, Negative: Hepatospenomegaly, Tenderness Extremity Exam: Positive: Normal pulses, Negative: Clubbing, Cyanosis, Edema, Swelling, Tenderness Skin Exam: Positive: Other skin issue Neuro Exam: Negative: Cranial Nerves 3-12 NL, Normal Speech, Strength at 5/5 X4 ext Psych Exam: Positive: Other (Pt sleepy. Somewhat confused.), Negative: Oriented x 3 Assessment /Plan Problems (1) Mass of brain Status: Acute Problem Text: 07/19 - family present. Reaffirm what they discussed with Dr Veronica yesterday as noted below. Swallow eval scheduled for today. 07/18 - Dr. Veronica and I met with daughter Lon and grandson again this morning Alberto does not want to pursue biopsy. We are all in agreement with that for now. 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 He is DNR/DNI We will hold off on Oncology eval b/c it is unlikely they will have much to offer without tissue diagnosis Continue PT/OT - he may need ST rehab or perhaps PMR Repeat ST eval to see if he can advance the consistently of his diet (currently on pureed) 07/17 - Patient and family do not want to pursue biopsy they have a meeting with Neurosurgery today to discuss further, but srini will not get biospy CT chest/abd/pelvis only shows large ? 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 Myers. Echo unremarkable. B/C pending. Tmax = 101 at noon yesterday. d/W attending empiric antibiotics Other sources for fever evaluated - CXR negative, U/C pending, U/A not highly suspicious for UTI (2) Acute kidney failure Status: Acute Problem Text: 07/19 - Creatinine down today at 1.18. Creatinine has gone up after CT chest, abd , pelvis with IV contrast. 07/18 - Renal function improving with IVF. Taking some po, but not much yet continue IVF Lopez d/c'd today - so monitoring urine output (3) Metabolic encephalopathy Status: Acute Response to Treatment: Improving Problem Text: 07/19 - Pt with some confusion today. On IV Decadron. 07/18 - Mental status improving. suspect his AMS was related to post-ictal state as well as some brain swelling from the brain mass with mild cerebral edema. Continue Decadron IV for now Discuss with Neurology when we can switch to oral steroids. (4) Cerebral edema Status: Acute Problem Text: Brain swelling related to mass with mild cerebral edema and brain compression continue Decadron IV (5) Seizure Status: Acute Problem Text: 07/19 - IV Keppra. Neurology following. Seizure witnessed by daughter at home as well as witnessed seizure in the emergency department 07/15 - No further seizure activity. May be able to get EEG today id still desired by Neurology Continue Keppra IV - defer dose adjustments to Neurology 07/16 - No further seizure activity EEG done -results pending Kepra dose decreased some yesterday 07/17 - No further seizures on Keppra IV per Neurology 07/18 - IV Keppra dose was increase back up to 750 mg IV by Neurology Discuss with Neurology when we can switch to po (6) Atrial fibrillation with rapid ventricular response Status: Chronic Problem Text: 07/19 - INR 1.8. Received Vit K yesterday to prevent bleeding into brain mass. 07/15 - Maintain patient on home dose of Coumadin if able to take po INR therapeutic currently, but will need Lovenox if INR drifts down Unable to take Coreg currently = 2.68 today consider IV Metoprolol if Rate becomes rapid 07/16 - Coumadin remains therapeutic Rate controlled. Not taking po meds including BB 07/18 - Coumadin has risen despite not getting Coumadin since admission. INR is supratherapeutic. INR = 3.15. Elevation is likely related to po po intake. He is just starting to eat. Give small dose of vitamin K today in effort to prevent bleeding into brain mass Goal INR would be 2 - 2.5 (7) Diastolic congestive heart failure Status: Chronic Problem Text: 07/15 - Strict I's and O's Daily weight Intravenous fluid resuscitation with normal saline at 70 mLs per hour Currently compensated clinically 07/16 - compensated on IVF. got a dose of Lasix yesterday due top poor urine output. 07/17 - He remains compensated on IVF (8) HTN (hypertension) Status: Chronic Response to Treatment: Worse Problem Text: BP high despite Metoprolol Stop NTG paste now that taking pos. Add Amlodipine He was on Losartan at home per Dr. Gong, but I would not restart that until his renal function returns to normal and he is drinking adequately Plan/VTE VTE Prophylaxis Ordered?: Yes (Coumadin) Plan/Urinary Catheter Reason for insertion/continuin: Critical Pt monitoring Plan Therapy: PT, OT, Speech Diagnostics: MRI (brain) Advance Directives: DNR (Spoke with Daughter - JOHN completed. Monitor for improvement over next 48 hours or so and then discuss transition to PHYSIOLOGIST if no improvement in status) Family Medicine Attending Note: Patient seen and examined this afternoon; I d/w RUTH ANN Taylor and I agree with his note. Patient was seen by Speech Therapy who recommended advancing diet to mechanical soft - I advanced diet per their recommendations. Patient is drinking well and Cr has normalized, so will stop IVF. Patient's son is requesting PT; PT is consulted and per their notes PT saw her today but he was not interested in participating in PT. BP is mildly elevated today - will stop IVF and monitor; if it continues to be elevated, we can restart valsartan now that kidney function has normalized. (KES) VS, I&O, 24H, Fishbone Vital Signs/I&O Vital Signs Date Time Temp Pulse Resp B/P Pulse Ox O2 Delivery O2 Flow Rate FiO2 07/19/16 06:00 99.0 61 20 168/86 94 Room Air 07/18/16 00:00 2.0 07/13/16 15:24 50 I&O- Last 24 Hours up to 6 AM 07/19/16 06:00 Intake Total 3527.5 ml Output Total 1260 ml Balance 2267.5 ml Laboratory Data 24H LABS Laboratory Tests 2 07/19/16 05:20: Anion Gap 8, Blood Urea Nitrogen 42H, Creatinine 1.18, Sodium Level 147H, Potassium Level 4.4, Chloride Level 112H, Carbon Dioxide Level 27, Calcium Level 7.9L, Glomerular Filtration Rate > 60.0, Prothromb Time International Ratio 1.87, Prothrombin Time 21.6H CBC/BMP Laboratory Tests 07/19/16 05:20 Calcium Level 7.9 L, Red Blood Count 4.56, Mean Corpuscular Volume 86.8, Mean Corpuscular Hemoglobin 28.0, Mean Corpuscular Hemoglobin Concent 32.3, Red Cell Distribution Width 13.9 Microbiology Microbiology 07/16/16 Blood Culture - Preliminary, Resulted No Growth after 72 hours. All specime... 07/15/16 Blood Culture - Preliminary, Resulted No Growth after 72 hours. All specime... 07/15/16 Blood Culture - Preliminary, Resulted No Growth after 72 hours. All specime... 07/15/16 Urine Culture - Final, Complete 07/13/16 Urine Culture - Final, Complete Angel Puente RPA-Adonay Jul 19, 2016 11:52 MICHEAL ROBLERO MD Jul 19, 2016 16:49
[2016-07-19 22:00] VITALS: BP 163/81
[2016-07-20] MEDS: dexameTHASONE 4 MG/ML 1ML VIAL (J1100) IV SCH ×2 (02:05→09:18)
[2016-07-20 06:00] VITALS: BP 156/84
[2016-07-20 06:25] LABS: INR 1.24; MEAN CORPUSCULAR VOLUME 87.4 fl (80.0-96.0); RED CELL DISTRIBUTION WIDTH 13.8 % (11.5-14.5); WHITE BLOOD COUNT 6.3 K/mm3 (4.0-10.0)
[2016-07-20 06:29] LABS: CALCIUM LEVEL 7.9 MG/DL (8.8-10.2); CREATININE FOR GFR 1.26 MG/DL (0.70-1.30); GLOMERULAR FILTRATION RATE 57.8 (>35); POTASSIUM SERUM 4.3 MEQ/L (3.5-5.1)
[2016-07-20] MEDS: CARVedilol 3.125 MG TAB PO SCH ×2 (09:19→20:28)
[2016-07-20] MEDS: amLODIPine 5 MG TAB PO SCH (09:19)
[2016-07-20] MEDS: TAMSULOSIN 0.4 MG CAP PO SCH (09:19)
[2016-07-20] MEDS: ATORVASTATIN 20 MG TAB PO SCH (09:19)
[2016-07-20] MEDS: PANTOPRAZOLE 40MG TAB (PROTONIX) PO SCH (09:19)
[2016-07-20] MEDS: VITAMIN D 1,000 INTERNATIONAL UNITS TABLET PO SCH (09:19)
[2016-07-20] MEDS: levETIRAcetam INJection 750 MG in D5W 100 ML IV SCH (09:19)
--- NOTE | 2016-07-20 12:21 | IPNPDOC ---
Subjective Date Seen The patient was seen on 07/20/16. Subjective Chief Complaint/HPI The patient is a 86-year-old male admitted with a reason for visit of Altered Mental Status;Seizure. Events since last encounter Pt recognized me right away. Much sharper today. Son at bedside and notes improved mental status today. Pt had PT today and has been walking around. Denies CP, SOB, Abd pain. Constitutional: Denies: Chills, Fever Pulmonary: Denies: Dyspnea Cardiovascular: Denies: Chest Pain Gastrointestinal: Denies: Abdominal Pain, Nausea, Vomiting Objective Physical Examination General Exam: Positive: Alert, No Acute Distress, Other ENT Exam: Positive: Atraumatic Neck Exam: Positive: Supple, Negative: JVD, Lymphadenopathy, thyromegaly Chest Exam: Positive: Clear to auscultation, Normal air movement Heart Exam: Positive: Normal S1, Normal S2, Negative: Murmurs, Other, Rate Normal, Regular Rhythm, Rubs Abdomen Exam: Positive: BS Hypoactive, Soft, Negative: Hepatospenomegaly, Tenderness Extremity Exam: Positive: Normal pulses, Negative: Clubbing, Cyanosis, Edema, Swelling, Tenderness Skin Exam: Positive: Other skin issue Neuro Exam: Negative: Cranial Nerves 3-12 NL, Normal Speech, Strength at 5/5 X4 ext Psych Exam: Positive: Other (Pt sleepy. Somewhat confused.), Negative: Oriented x 3 Assessment /Plan Problems (1) Mass of brain Status: Acute Problem Text: 07/20 - Pt sharper today. Getting PT. JFW: see dictated addendum 07/19 - family present. Reaffirm what they discussed with Dr Veronica yesterday as noted below. Swallow eval scheduled for today. 07/18 - Dr. Veronica and I met with daughter Lon and grandson again this morning Alberto does not want to pursue biopsy. We are all in agreement with that for now. We will monitor his neurological status going forward and consider repeat MRI in a couple of weeks to assess change in brain mass May consider hospice as outpatient but he is NOT [employer] currently. He is DNR/DNI We will hold off on Oncology eval b/c it is unlikely they will have much to offer without tissue diagnosis Continue PT/OT - he may need ST rehab or perhaps PMR Repeat ST eval to see if he can advance the consistently of his diet (currently on pureed) 07/17 - Patient and family do not want to pursue biopsy they have a meeting with Neurosurgery today to discuss further, but srini will not get biospy CT chest/abd/pelvis only shows large ? 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 Myers. Echo unremarkable. B/C pending. Tmax = 101 at noon yesterday. d/W attending empiric antibiotics Other sources for fever evaluated - CXR negative, U/C pending, U/A not highly suspicious for UTI (2) Acute kidney failure Status: Acute Problem Text: 07/20 - Creatinine 1.26. 07/19 - Creatinine down today at 1.18. Creatinine has gone up after CT chest, abd , pelvis with IV contrast. 07/18 - Renal function improving with IVF. Taking some po, but not much yet continue IVF Lopez d/c'd today - so monitoring urine output (3) Metabolic encephalopathy Status: Acute Response to Treatment: Improving Problem Text: 07/20 - Pt sharper today. On IV Decadron . On IV Keppra. D/W attending possibility of changing to PO meds. 07/19 - Pt with some confusion today. On IV Decadron. 07/18 - Mental status improving. suspect his AMS was related to post-ictal state as well as some brain swelling from the brain mass with mild cerebral edema. Continue Decadron IV for now Discuss with Neurology when we can switch to oral steroids. (4) Cerebral edema Status: Acute Problem Text: Brain swelling related to mass with mild cerebral edema and brain compression continue Decadron IV (5) Seizure Status: Acute Problem Text: 07/20 - IV Keppra. D/W attending the possibility of changing to PO. 07/19 - IV Keppra. Neurology following. Seizure witnessed by daughter at home as well as witnessed seizure in the emergency department 07/15 - No further seizure activity. May be able to get EEG today id still desired by Neurology Continue Keppra IV - defer dose adjustments to Neurology 07/16 - No further seizure activity EEG done -results pending Kepra dose decreased some yesterday 07/17 - No further seizures on Keppra IV per Neurology 07/18 - IV Keppra dose was increase back up to 750 mg IV by Neurology Discuss with Neurology when we can switch to po (6) Atrial fibrillation with rapid ventricular response Status: Chronic Problem Text: 07/20 - INR 1.24. Restart coumadin. Give 5 mg today. recheck inr in am. 07/19 - INR 1.8. Received Vit K yesterday to prevent bleeding into brain mass. 07/15 - Maintain patient on home dose of Coumadin if able to take po INR therapeutic currently, but will need Lovenox if INR drifts down Unable to take Coreg currently = 2.68 today consider IV Metoprolol if Rate becomes rapid 07/16 - Coumadin remains therapeutic Rate controlled. Not taking po meds including BB 07/18 - Coumadin has risen despite not getting Coumadin since admission. INR is supratherapeutic. INR = 3.15. Elevation is likely related to po po intake. He is just starting to eat. Give small dose of vitamin K today in effort to prevent bleeding into brain mass Goal INR would be 2 - 2.5 (7) Diastolic congestive heart failure Status: Chronic Problem Text: 07/15 - Strict I's and O's Daily weight Intravenous fluid resuscitation with normal saline at 70 mLs per hour Currently compensated clinically 07/16 - compensated on IVF. got a dose of Lasix yesterday due top poor urine output. 07/17 - He remains compensated on IVF (8) HTN (hypertension) Status: Chronic Response to Treatment: Worse Problem Text: BP high despite Metoprolol Stop NTG paste now that taking pos. Add Amlodipine He was on Losartan at home per Dr. Gong, but I would not restart that until his renal function returns to normal and he is drinking adequately Plan/VTE VTE Prophylaxis Ordered?: Yes (Coumadin) Plan/Urinary Catheter Reason for insertion/continuin: Critical Pt monitoring Plan Therapy: PT, OT, Speech Diagnostics: MRI (brain) Advance Directives: DNR (Spoke with Daughter - MOLST completed. Monitor for improvement over next 48 hours or so and then discuss transition to [employer] if no improvement in status) VS, I&O, 24H, Fishbone Vital Signs/I&O Vital Signs Date Time Temp Pulse Resp B/P Pulse Ox O2 Delivery O2 Flow Rate FiO2 07/20/16 09:19 58 156/84 07/20/16 06:00 97.4 18 97 Room Air 07/18/16 00:00 2.0 I&O- Last 24 Hours up to 6 AM 07/20/16 06:00 Intake Total 1020 ml Output Total 510 ml Balance 510 ml Laboratory Data 24H LABS Laboratory Tests 2 07/20/16 05:14: Anion Gap 6L, Blood Urea Nitrogen 40H, Creatinine 1.26, Sodium Level 148H, Potassium Level 4.3, Chloride Level 113H, Carbon Dioxide Level 29, Calcium Level 7.9L, Glomerular Filtration Rate 57.8, Prothromb Time International Ratio 1.24, Prothrombin Time 15.7H CBC/BMP Laboratory Tests 07/20/16 05:14 Calcium Level 7.9 L, Red Blood Count 4.46, Mean Corpuscular Volume 87.4, Mean Corpuscular Hemoglobin 28.0, Mean Corpuscular Hemoglobin Concent 32.0, Red Cell Distribution Width 13.8 Microbiology Microbiology 07/16/16 Blood Culture - Preliminary, Resulted No Growth after 72 hours. All specime... 07/15/16 Blood Culture - Preliminary, Resulted No Growth after 72 hours. All specime... 07/15/16 Blood Culture - Preliminary, Resulted No Growth after 72 hours. All specime... 07/15/16 Urine Culture - Final, Complete 07/13/16 Urine Culture - Final, Complete Angel Puente Jul 20, 2016 12:21 Marco Antonio Veronica MD Jul 20, 2016 13:40
--- NOTE | 2016-07-20 13:51 | IPN ---
DATE OF SERVICE: 07/20/2016 Alberto was seen on [facility]. This note supplements Pineda Puente's note from today. I have spoken with Lon, his daughter. We discussed short-term plans, which at this point are to do a home safety evaluation later on in the week to see whether he would benefit from rehabilitation. He had a repeat swallowing evaluation. Commiskey his swallow was adequate for mechanically soft diet with regular/thin liquids. So, he is quite pleased about that. I have changed his intravenous (IV) Keppra to by mouth. Changed his IV decadron to by mouth and his warfarin, which has been restarted, and we can adjust the dose of that as an outpatient as needed with the home safety evaluation in 2 days and see whether he needs some short-term rehabilitation.
[2016-07-20 14:00] VITALS: BP 147/73
[2016-07-20] MEDS ORDERED: WARFARIN SOD 5 MG TAB PO ONE (17:00)
[2016-07-20] MEDS: levETIRAcetam 250MG TABLET (KEPPRA) PO SCH (20:27)
[2016-07-20 22:00] VITALS: BP 148/82
[2016-07-21 06:00] VITALS: BP 143/87
[2016-07-21 07:06] LABS: INR 1.25
[2016-07-21 07:08] LABS: EOS % 0.7 % (0.0-3.0); LARGE UNSTAINED CELL # 0.1 K/mm3 (0.0-0.4); LARGE UNSTAINED CELL % 0.8 % (0.0-4.0); LYMPH # 0.6 K/mm3 (1.5-4.5); LYMPH % 8.4 % (24.0-44.0); MEAN CORPUSCULAR HEMOGLOBIN 28.7 pg (27.0-33.0); MEAN CORPUSCULAR HGB CONC 32.9 g/dl (32.0-36.5); MEAN CORPUSCULAR VOLUME 87.3 fl (80.0-96.0); MONO # 0.6 K/mm3 (0.0-0.8); MONO % 8.3 % (0.0-5.0); NEUTROPHILS # 5.6 K/mm3 (1.8-7.7); NEUTROPHILS % 81.7 % (36.0-66.0); PLATELET COUNT, AUTOMATED 189 k/mm3 (150-450); RED CELL DISTRIBUTION WIDTH 13.9 % (11.5-14.5); WHITE BLOOD COUNT 6.8 K/mm3 (4.0-10.0)
[2016-07-21 07:18] LABS: ALBUMIN 2.3 GM/DL (3.2-5.2); ALBUMIN/GLOBULIN RATIO 0.74 (1.00-1.93); BILIRUBIN,TOTAL 0.8 MG/DL (0.2-1.0); CALCIUM LEVEL 8.1 MG/DL (8.8-10.2); CREATININE FOR GFR 1.23 MG/DL (0.70-1.30); GLOMERULAR FILTRATION RATE 59.4 (>35); POTASSIUM SERUM 4.1 MEQ/L (3.5-5.1); TOTAL PROTEIN 5.4 GM/DL (6.4-8.2)
[2016-07-21 09:39] VITALS: BP 140/70
[2016-07-21] MEDS: TAMSULOSIN 0.4 MG CAP PO SCH (09:39)
[2016-07-21] MEDS: levETIRAcetam 250MG TABLET (KEPPRA) PO SCH (09:39)
[2016-07-21] MEDS: VITAMIN D 1,000 INTERNATIONAL UNITS TABLET PO SCH (09:39)
[2016-07-21] MEDS: CARVedilol 3.125 MG TAB PO SCH (09:39)
[2016-07-21] MEDS: ATORVASTATIN 20 MG TAB PO SCH (09:39)
[2016-07-21] MEDS: PANTOPRAZOLE 40MG TAB (PROTONIX) PO SCH (09:39)
[2016-07-21] MEDS: amLODIPine 5 MG TAB PO SCH (09:40)
[2016-07-21] MEDS ORDERED: FLOM5CAP PO (14:46)
[2016-07-21] MEDS ORDERED: ATOR1TAB21 PO (14:46)
[2016-07-21] MEDS ORDERED: DEXA4TA PO (14:46)
[2016-07-21] MEDS ORDERED: VITAD1000T PO (14:46)
[2016-07-21] MEDS ORDERED: CARV3.12 PO (14:46)
[2016-07-21] MEDS ORDERED: KEPP250T5 PO (14:46)
[2016-07-21] MEDS ORDERED: COUM7.5T PO (14:46)
[2016-07-21] MEDS ORDERED: AMLO5TAB2 PO (14:46)
[2016-07-21] MEDS ORDERED: PANT40TA2 PO (14:46)
[2016-07-21] MEDS ORDERED: MAPA325T2 PO (14:46)
--- NOTE | 2016-07-21 15:15 | DSES ---
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 SECONDARY DIAGNOSES: 1. Acute kidney injury, resolved. 2. Metabolic encephalopathy secondary to brain tumor, suspected seizure. 3. Brain swelling/edema secondary to brain tumor. 4. 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 5. Atrial fibrillation with rapid ventricular response. 6. Diastolic congestive heart failure. 7. Hypertension. 8. Swallowing dysfunction requiring altered diet, resolved before discharge. HISTORY: Alberto Osborne was admitted with altered mental status. He was found by his daughter experiencing what seemed to be a seizure. HOSPITAL COURSE: He was admitted to the intensive care unit (ICU). CT scan of the brain was unremarkable. MRI was initially unremarkable. MRI with contrast showed left temporal lobe ring enhancing mass suspicious for high grade glioma. He was treated with antiseizure medication. He failed his first swallowing study, so his diet was altered to reflect this. He was seen by neurology and neurosurgery. Family declined brain biopsy. The plan is to follow this clinically as an outpatient. If it is a brain tumor, he does not want surgery for it. If it is not, his condition will stabilize and we will look into re-imaging him as an outpatient. He had a swallowing study yesterday and it showed that he could resume a mechanically soft diet with thin liquids. His brain swelling was treated with Decadron. His acute kidney injury was treated with hydration. His warfarin was held after admission. He received a single dose of 1.25 mg of vitamin K and his international normalized ratio (INR) went up to 3.1 in order to prevent the risk of intracerebral hemorrhage. INR is prolonging now that warfarin has been restarted. SIGNIFICANT LABORATORY DATA: White count 6, hemoglobin 12.6, platelets 189. INR 1.25, sodium 145, potassium 4.1, BUN 42, creatinine 1.2, glucose 105. Blood cultures were all negative. Urine culture is negative. MRI scan is as summarized above. CT scan of abdomen and pelvis is unremarkable. CT scan of the chest just showed a nonspecific anterior mediastinal 2.7 cm soft tissue lesion, lymph node, residual thymus, or duplication cyst suggested. No workup necessary. DISPOSITION: He is discharged down to the physical medicine and rehabilitation unit. On examination today, his vital signs are stable at 140/70, pulse is 69. He is alert and conversant. No facial droop or weakness. Speech is normal. Lungs are clear. Heart: Regular rate and rhythm, 1/6 systolic ejection murmur. Abdomen: Soft, nontender. No peripheral edema. No pronator drift. Normal coordination and [id number] testing. I did not test his gait. DISCHARGE MEDICATIONS: - warfarin 7.5 mg daily (he was on 5 mg daily but I increased the dose today as his INR remains 1.24) - Tylenol as needed - amlodipine 5 mg daily - atorvastatin 20 mg daily - carvedilol 3.125 mg twice a day - Decadron 4 mg twice a day tapering per physical medicine and rehabilitation physician - Keppra 750 mg twice a day - Protonix 40 mg daily - Flomax 0.4 mg daily for benign prostatic hypertrophy (BPH) - vitamin D 1000 units daily DISCHARGE INSTRUCTIONS: Activity per physical medicine and director of cardiac rehabilitation. Activity as tolerated. He is on a mechanically soft diet. He should followup in my office a week after discharge from physical medicine and rehabilitation unit. I will re-image his brain if it has been a suitable interval, probably waiting 2-8 weeks before doing this. We did fill out a medical orders for life-sustaining treatment (MOLST) form during his hospitalization. He is DO NOT RESUSCITATE (DNR)/DO NOT INTUBATE (DNI) status with trial of IV fluids and tube feedings as necessary.
[2016-07-21] MEDS ORDERED: WARFARIN SOD 7.5 MG TAB PO SCH (17:00)
== END 2016-07-21 16:49 | DRG 70 ==
LOC: M ED 16:59 → M ED INP 19:33 → M ICU 07-14 00:35 → M MSPAV 07-18 14:43
PROVIDERS: ADMIT Hospitalist; ATTEND Family Medicine
DX: G93.89 Other specified disorders of brain (principal); G93.41 Metabolic encephalopathy; G93.6 Cerebral edema; I50.32 Chronic diastolic (congestive) heart failure; I13.0 Hypertensive heart and chronic kidney disease with heart failure and stage 1 through stage 4 chronic kidney disease, or unspecified chronic kidney disease; C71.2 Malignant neoplasm of temporal lobe; R50.9 Fever, unspecified; I48.91 Unspecified atrial fibrillation; N18.9 Chronic kidney disease, unspecified; R56.9 Unspecified convulsions; G81.91 Hemiplegia, unspecified affecting right dominant side; Z66 Do not resuscitate; R13.10 Dysphagia, unspecified; N40.0 Benign prostatic hyperplasia without lower urinary tract symptoms; E78.5 Hyperlipidemia, unspecified; K64.8 Other hemorrhoids; K57.90 Diverticulosis of intestine, part unspecified, without perforation or abscess without bleeding; M19.90 Unspecified osteoarthritis, unspecified site; Z86.010 Personal history of colon polyps; Z79.01 Long term (current) use of anticoagulants; Z86.73 Personal history of transient ischemic attack (TIA), and cerebral infarction without residual deficits; Z79.899 Other long term (current) drug therapy; Z96.653 Presence of artificial knee joint, bilateral; Z87.891 Personal history of nicotine dependence

== ENCOUNTER 2016-07-21 16:34 | Inpatient (IN) | payer MEDICARE, BC, OTHER ==
[~2016-07-21] VITALS: Ht 182.9 cm; Wt 88.1 kg
[~2016-07-21 16:34] MED LIST changes: +AMLO2.5T PO; +AMLO5TAB2 PO; +ASPI1TAB PO; +ATEN25TA PO; +ATOR1TAB21 PO; +BENA25CA4 PO; +CARV3.12 PO; +COLA100C3 PO; +COUM7.5T PO; +COZA100T2 PO; +DEXA4TA PO; +FLOM5CAP PO; +KEPP250T5 PO; +LIPI20TA PO; +MAPA325T2 PO; +PANT40TA2 PO; +PROS5TAB PO; +TYLE650T35 PO; +VALS1TAB48 PO; +VITA100066 PO; +VITAD1000T PO; +WARF-18 PO; +WARF-23 PO
[2016-07-21 17:00] VITALS: BP 163/79
[2016-07-21 20:00] VITALS: BP 153/78
[2016-07-21] MEDS: CARVedilol 3.125 MG TAB PO SCH (21:32)
[2016-07-21] MEDS: levETIRAcetam 250MG TABLET (KEPPRA) PO SCH (21:33)
[2016-07-22] MEDS: ACETAMINOPHEN TAB 650MG DOSE (2X325MG) PO PRN ×2 (05:15→20:24)
[2016-07-22 06:00] VITALS: BP 172/86
[2016-07-22 07:39] LABS: INR 1.29
[2016-07-22 07:52] LABS: ALBUMIN 2.4 GM/DL (3.2-5.2); ALBUMIN/GLOBULIN RATIO 0.86 (1.00-1.93); BILIRUBIN,TOTAL 0.9 MG/DL (0.2-1.0); CALCIUM LEVEL 7.9 MG/DL (8.8-10.2); CREATININE FOR GFR 1.36 MG/DL (0.70-1.30); GLOMERULAR FILTRATION RATE 52.9 (>35); POTASSIUM SERUM 4.4 MEQ/L (3.5-5.1); TOTAL PROTEIN 5.2 GM/DL (6.4-8.2)
--- NOTE | 2016-07-22 08:09 | HPEPDOC ---
[employer] Note DATE OF ADMISSION: Jul 21, 2016 at 17:57 HISTORY OF PRESENT ILLNESS: Patient is an 86-year-old white male admitted on for evaluation of acute altered mental status. Patient noted to have had witnessed seizure before admission and during initial assessment. Patient started on IV Keppra and control his gain over his seizures again. 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 All patient's function has been improving as he cleared from the postictal state he continues to have some weakness and left facial droop with some left tongue deviation. Mobility and endurance are reduced and patient has been evaluated by physical and occupational therapy and showed good participation and some gains with reasonable expectation of additional gains with more treatment. Patient has advanced directives and is DO NOT RESUSCITATE. Allergies Coded Allergies: Enalapril (Unverified Adverse Reaction, Mild, COUGH, 07/25/12) No Known Allergies (Verified , 01/19/06) Past Medical History Past Medical History Medical History 1. Diastolic congestive heart failure 2. Abdominal aortic aneurysm 3. Atrial fibrillation with rapid ventricular response 4. History of transient ischemic attack 5. Chronic kidney disease 6. Benign prostatic hyperplasia 7. Hypertension 8. Dyslipidemia 9. Umbilical hernia 10. Diverticulosis 11. Nonbleeding internal hemorrhoids 12. Osteoarthritis 13. History of hammertoes 14. Villous adenoma 15. Tubular adenoma Surgical History 1. Right total knee replacement 2. History of colonoscopies 3. Hammertoe surgeries 4. Bunion removal 5. Left knee replacement 6. Umbilical hernia repair 7. Abdominal aortic aneurysm repair Family History Significant Family History: Cancer (father, esophageal cancer; sister, abdominal cancer; brother, cancer), Other (mother, liver disease) Social History * Smoker: former Smoker (also pack per day for 30 years, quit in 1993) Alcohol: Denies Recent Travel/Sick Contacts: Denies: Recent sick contacts, Recent travel Lives independently with family close by Retired [employer] employee - Previously worked for [employer] - Previously worked as snowplow Remote travel history, domestic No pets in the home Review of Systems Review of Symptoms Constitutional: Denies: Chills, Fever, Malaise, Weakness, Weight Loss Eyes: Reports: Other (per patient's daughter - denies acute vision changes) ENT: Denies: Head Aches Skin: Denies: Lesions, Rash Pulmonary: Denies: Cough, Pleuritic Chest Pain Cardiovascular: Denies: Chest Pain, Edema, Lt Headedness, Orthopnea, Palpitations Gastrointestinal: Denies: Abdominal Pain, Constipation, Diarrhea, Hematochezia , Melena, Nausea, Vomiting Genitourinary: Denies: Dysuria, Frequency, Hematuria Hematologic: Denies: Bruising Musculoskeletal: Denies: Back Pain, Joint Pain Neurological: Denies: Numbness, Weakness MEDICATIONS: See Below. VITAL SIGNS: Temperature 98.5 pulse 64 blood pressure 163/79 pulse oximetry 95% on room air. PHYSICAL EXAMINATION: GENERAL: Average height someone overweight elderly white male sitting up in chair next to his bed. HEENT: Normocephalic atraumatic with notable thinning of his figueroa hair facial droop and left tongue deviation, slight dysarthria. But extraocular motions intact and conjugate vision with slight droop of right eye lid. CARDIOVASCULAR: Regular rate and rhythm with normal S1 and S2 and to 4 radial pulses. LUNGS: All block clear to auscultation, no wheezes rales or rhonchi heard. ABDOMEN: Mildly obese with bowel sounds present in all quadrants no palpable tenderness. NEUROLOGICAL: Patient with some difficulty hearing at times with some word confusion. But he is oriented to Person, Place, General time and to his situation. Memory is fair to good for recent events and good for remote. Motor shows 5 minus to 5 strength diffusely. Light touch was intact and symmetrical but patient expressed not being able to distinguish the vibratory stimuli to his upper and lower extremities well except for his left upper. Deep tendon reflexes showed 2+ for biceps triceps brachioradialis but only trace knee jerks. No clonus was found in the ankle EXTREMITIES: Well-developed with some arthritic changes especially in the distal wrist hands and feet. Range of motion is functional. LABORATORY DATA: Please see below. FUNCTIONAL STATUS: Premorbid: Patient presently modified independent to independent in ADLs and mobility. On Admission: Currently comprehension expression social interaction and problem solving and memory are M om assist patient ambulation is max assist min assist for toilet transfers and bowel and bladder supervision toileting min assist dressing lower extremities is moderate assist bathing moderate assist grooming min assist in eating is modified independent. ASSESSMENT AND PLAN: 1. Rehabilitation of glioblastoma: We'll go ahead and start program of physical occupational and speech therapy per patient and family training and to build the patient's and endurance and safety habits to facilitate safe return to patient and her family member's home. Unfortunately for this gentleman the prognosis with a glioblastoma tends to be poor so optimizing his function to have as much time with family and friends is the most valuable thing I feel we have the offer this gentleman and his family. 2. Status post CVAs: I do feel that the deficits from the prior CVAs have been exacerbated by infiltrative tumor as well as the postictal effects of his recurrent seizures. Patient is currently being reestablished on his Keppra by mouth and level will be checked and morning. 3. 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 4. Atrial fibrillation: He is currently subtherapeutic and needs to be reestablished on his outpatient dose of Coumadin and we will proceed with this while he is here focusing on his overall mobility and care skills along with family training. Patient will receive Coumadin 7.5 mg and will check INR in the morning and coordinate this care with the hospitalist service. 5. Chronic kidney disease: We'll continue to observe this and will restrict her sodium in his diet. 6. Congestive heart failure: We'll follow weight strict sodium and watch blood pressure and overall oxygenation and endurance. POST ADMISSION PHYSICIAN EVALUATION: PT, OT, case management and myself of evaluated this patient and agreed that patient as a potential to make some significant improvement over the above level of function. In light of the tumor diagnosis as likely prognosis for goal is to try and optimize patient family ability to get him and keep him at home. Therefore anticipated he would benefit from a fairly short stay on the acute rehabilitation unit as he needs to optimize his other medical problems noted above and get them stabilized on medication so his overall function along with the training will allow this goal. PROGNOSIS: Fair ESTIMATED LENGTH OF STAY: 7 days. TIME SPENT COUNSELING AND COORDINATING INITIAL CARE: Greater than 90 minutes. Vital Signs Vital Signs Date Time Temp Pulse Resp B/P Pulse Ox O2 Delivery O2 Flow Rate FiO2 07/21/16 17:00 98.5 64 18 163/79 95 Room Air Home Medications Scheduled Amlodipine Besylate (Amlodipine Besylate) 5 Mg Tab 5 MG PO DAILY Atorvastatin Calcium (Atorvastatin Calcium) 20 Mg Tab 20 MG PO DAILY Carvedilol (Carvedilol) 3.125 Mg Tab 3.125 MG PO BID Dexamethasone (Dexamethasone) 4 Mg Tab 4 MG PO Q12H Levetiracetam (Keppra) 250 Mg Tab 750 MG PO BID Pantoprazole Sodium (Pantoprazole Sodium) 40 Mg Tab 40 MG PO DAILY Tamsulosin Hydrochloride (Flomax) 0.4 Mg Cap 0.4 MG PO DAILY Vitamin D (Vitamin D3) 1,000 Units Tab 1,000 UNITS PO DAILY Warfarin Sod (Coumadin) 7.5 Mg Tab 7.5 MG PO DAILY@17 Scheduled PRN Acetaminophen (Mapap) 325 Mg Tab 650 MG PO Q8HP PRN PRN PAIN Allergies Coded Allergies: Enalapril (Unverified Adverse Reaction, Mild, COUGH, 07/25/12) No Known Allergies (Verified , 01/19/06) IDANIA SALAS MD Jul 21, 2016 18:42
[2016-07-22 08:35] LABS: BASO % 0.1 % (0.0-1.0); EOS % 0.1 % (0.0-3.0); LARGE UNSTAINED CELL # 0.1 K/mm3 (0.0-0.4); LARGE UNSTAINED CELL % 0.8 % (0.0-4.0); LYMPH # 0.4 K/mm3 (1.5-4.5); LYMPH % 4.4 % (24.0-44.0); MEAN CORPUSCULAR HEMOGLOBIN 28.1 pg (27.0-33.0); MEAN CORPUSCULAR VOLUME 87.8 fl (80.0-96.0); MONO # 0.6 K/mm3 (0.0-0.8); MONO % 7.1 % (0.0-5.0); NEUTROPHILS # 7.2 K/mm3 (1.8-7.7); NEUTROPHILS % 87.4 % (36.0-66.0); PLATELET COUNT, AUTOMATED 180 k/mm3 (150-450); RED CELL DISTRIBUTION WIDTH 13.7 % (11.5-14.5); WHITE BLOOD COUNT 8.3 K/mm3 (4.0-10.0)
[2016-07-22] MEDS: amLODIPine 5 MG TAB PO SCH ×2 (09:00→20:25)
[2016-07-22] MEDS ORDERED: amLODIPine 5 MG TAB PO SCH (09:00)
[2016-07-22] MEDS: levETIRAcetam 250MG TABLET (KEPPRA) PO SCH ×2 (09:15→20:24)
[2016-07-22] MEDS: ATORVASTATIN 20 MG TAB PO SCH (09:15)
[2016-07-22] MEDS: TAMSULOSIN 0.4 MG CAP PO SCH (09:15)
[2016-07-22] MEDS: VITAMIN D 1,000 INTERNATIONAL UNITS TABLET PO SCH (09:15)
[2016-07-22] MEDS: PANTOPRAZOLE 40MG TAB (PROTONIX) PO SCH (09:15)
[2016-07-22] MEDS: CARVedilol 3.125 MG TAB PO SCH ×2 (09:16→20:25)
[2016-07-22 14:00] VITALS: BP 131/64
--- NOTE | 2016-07-22 17:11 | IPNPDOC ---
Professor [employer] Progress Note DATE OF SERVICE: 07/22/2016 DATE OF ADMISSION: Jul 21, 2016 at 17:57 INPATIENT REHABILITATION ADMISSION DAY: #1 SUBJECTIVE: Patient is a 86-year-old white male with right temporal glioblastoma multiform complicated by seizures and prior CVAs. Patient denies any pain fevers chills or other problems and expresses his desire to participate in therapy and be able to return home with family.. ALLERGIES: See Below MEDICATIONS ON ADMISSION: Reviewed, see below. OBJECTIVE: VITAL SIGNS: Please see below. PHYSICAL EXAMINATION: GENERAL: Elderly white male with saying of hair mild facial droop but generally clear speech, though occasionally off topic. HEENT: Extraocular ocular motions are intact . Pupils are equal round reactive to light and accommodation. CARDIOVASCULAR: Regular rate and rhythm with normal S1 and S2 LUNGS: Clear now feels auscultation. ABDOMEN: Bowel sounds present throughout nontender abdomen to touch. NEUROLOGICAL: Patient is alert and oriented to person place and time and general situation. LABORATORY DATA: Reviewed. Please see below. MICROBIOLOGY: Please see below. ASSESSMENT AND PLAN: 1. Rehabilitation of glioblastoma complicated by seizures and prior CVAs: Team is starting assessment today to include PT OT and speech therapy. Speech will assess patient for cognition he has multiple infarcts as well as the tumor and difficulty with hearing that may be causing some of the communication deficits noted. 2. Seizures: patient appears to be doing better the further out he gets from his postictal state. Keppra level was ordered for this morning. 3. Atherosclerotic cardiovascular disease: For now will continue current regimen principally his admission cardiac medicines. INR also ordered to monitor anticoagulation. 4. Chronic renal insufficiency: Patient with elevation of BUN/creatinine will monitor this with patient's PCP who has been consulted. TIME SPENT: 30 minutes including team rounds. Allergies Coded Allergies: Enalapril (Unverified Adverse Reaction, Mild, COUGH, 07/25/12) No Known Allergies (Verified , 01/19/06) Vital Signs Vital Signs Date Time Temp Pulse Resp B/P Pulse Ox O2 Delivery O2 Flow Rate FiO2 07/22/16 14:00 98.3 70 18 131/64 96 Room Air Laboratory Data CBC/BMP Laboratory Tests 07/22/16 07:12 Calcium Level 7.9 L, Aspartate Amino Transf (AST/SGOT) 35, Alanine Aminotransferase (ALT/SGPT) 81 H, Alkaline Phosphatase 82, Total Bilirubin 0.9, Total Protein 5.2 L, Albumin 2.4 L, Red Blood Count 4.54, Mean Corpuscular Volume 87.8, Mean Corpuscular Hemoglobin 28.1, Mean Corpuscular Hemoglobin Concent 32.0, Red Cell Distribution Width 13.7, Neutrophils (%) (Auto) 87.4 H, Lymphocytes (%) (Auto) 4.4 L, Monocytes (%) (Auto) 7.1 H, Eosinophils (%) (Auto ) 0.1, Basophils (%) (Auto) 0.1, Neutrophils # (Auto) 7.2, Lymphocytes # (Auto) 0.4 L, Monocytes # (Auto) 0.6, Eosinophils # (Auto) 0.0, Basophils # (Auto) 0.0 Labs 24H Laboratory Tests 2 07/22/16 05:48: Urine Amorphous Sediment , Urine Appearance CLEAR, Urine Color YELLOW, Urine pH 5.0, Urine Specific [place] 1.015, Urine Protein NEGATIVE, Urine Glucose (UA) NEGATIVE, Urine Ketones NEGATIVE, Urine Urobilinogen 0.2, Urine Bilirubin NEGATIVE, Urine Leukocyte Esterase NEGATIVE, Urine Bacteria (Auto) NEGATIVE, Urine Blood 2+H, Urine Calcium Carbonate Cryst(Auto) , Urine Calcium Oxalate Cryst (Auto) , Urine Calcium Phosphate Shira (Auto) , Urine Cellular Casts , Urine Cystine Crystals , Urine Granular Casts (Auto) , Urine Hyaline Casts (Auto ) 0, Urine Leucine Crystals , Urine Mucus (Auto) SMALL, Urine Nitrite NEGATIVE, Urine Oval Fat Bodies (Auto) , Urine RBC (Auto) 5H, Urine Renal Epithelial Cells , Urine Sperm (Auto) , Urine Squamous Epithelial Cells 0, Urine Transitional Epithelial Cells , Urine Trichomonas (Auto) , Urine Triple Phosphate Cryst (Auto) , Urine Tyrosine Crystals , Urine Uric Acid Crystals ( Auto) , Urine WBC (Auto) 1, Urine Waxy Casts (Auto) , Urine Yeast-Like Cells ( Auto) 07/22/16 07:12: Blood Urea Nitrogen 39H, Creatinine 1.36H, Sodium Level 145, Potassium Level 4.4 , Chloride Level 110H, Carbon Dioxide Level 31, Calcium Level 7.9L, Aspartate Amino Transf (AST/SGOT) 35, Alanine Aminotransferase (ALT/SGPT) 81H, Alkaline Phosphatase 82, Total Bilirubin 0.9, Total Protein 5.2L, Albumin 2.4L, Albumin/ Globulin Ratio 0.86L, Anion Gap 4L, White Blood Count 8.3, Red Blood Count 4.54 , Hemoglobin 12.8L, Hematocrit 39.9L, Mean Corpuscular Volume 87.8, Mean Corpuscular Hemoglobin 28.1, Mean Corpuscular Hemoglobin Concent 32.0, Red Cell Distribution Width 13.7, Platelet Count 180, Neutrophils (%) (Auto) 87.4H, Lymphocytes (%) (Auto) 4.4L, Monocytes (%) (Auto) 7.1H, Eosinophils (%) (Auto) 0.1, Basophils (%) (Auto) 0.1, Neutrophils # (Auto) 7.2, Lymphocytes # (Auto) 0.4L, Monocytes # (Auto) 0.6, Eosinophils # (Auto) 0.0, Basophils # (Auto) 0.0, Glomerular Filtration Rate 52.9, Large Unclassified Cells # 0.1, Large Unclassified Cells % 0.8, Prothromb Time International Ratio 1.29, Prothrombin Time 16.2H Current Medications Current Medications Current Medications Acetaminophen (Tylenol Tab) 650 mg Q4HP PRN PO MILD PAIN (PS 1-4) Last administered on 07/22/16 05:15; Start 07/21/16 at 17:15; Stop 08/20/16 at 17:14 Amlodipine Besylate (Norvasc) 5 mg BID PO ; Start 07/22/16 at 09:00; Stop at 08:59 Amlodipine Besylate (Norvasc) 5 mg DAILY PO ; Start 07/22/16 at 09:00; Stop at 09:16; Status DC Atorvastatin Calcium (Lipitor) 20 mg DAILY PO Last administered on 07/22/16 09 :15; Start 07/22/16 at 09:00; Stop 08/21/16 at 08:59 Carvedilol (COReg) 3.125 mg BID PO Last administered on 07/22/16 09:16; Start 07/21/16 at 21:00; Stop 08/20/16 at 20:59 Dexamethasone (Decadron) 4 mg Q12H PO Last administered on 07/22/16 09:15; Start 07/21/16 at 21:00; Stop 08/20/16 at 20:59 Levetiracetam (Keppra) 750 mg BID PO Last administered on 07/22/16 09:15; Start 07/21/16 at 21:00; Stop 08/20/16 at 20:59 Pantoprazole Sodium (Protonix) 40 mg DAILY PO Last administered on 07/22/16 09 :15; Start 07/22/16 at 09:00; Stop 08/21/16 at 08:59 Tamsulosin HCl (Flomax) 0.4 mg DAILY PO Last administered on 07/22/16 09:15; Start 07/22/16 at 09:00; Stop 08/21/16 at 08:59 Vitamin D (Vitamin D) 1,000 units DAILY PO Last administered on 07/22/16 09:15 ; Start 07/22/16 at 09:00; Stop 08/21/16 at 08:59 Warfarin Sodium (Coumadin) 7.5 mg DAILY@17 PO ; Start 07/22/16 at 17:00; Stop at 16:59 IDANIA SALAS MD Jul 22, 2016 17:06
[2016-07-22] MEDS: WARFARIN SOD 7.5 MG TAB PO SCH (17:30)
[2016-07-22 20:00] VITALS: BP 168/78
[2016-07-23 06:00] VITALS: BP 161/73
[2016-07-23] MEDS: levETIRAcetam 250MG TABLET (KEPPRA) PO SCH ×2 (08:42→20:59)
[2016-07-23] MEDS: VITAMIN D 1,000 INTERNATIONAL UNITS TABLET PO SCH (08:42)
[2016-07-23] MEDS: TAMSULOSIN 0.4 MG CAP PO SCH (08:42)
[2016-07-23] MEDS: ATORVASTATIN 20 MG TAB PO SCH (08:42)
[2016-07-23] MEDS: PANTOPRAZOLE 40MG TAB (PROTONIX) PO SCH (08:42)
[2016-07-23] MEDS: CARVedilol 3.125 MG TAB PO SCH ×2 (08:43→20:59)
[2016-07-23] MEDS: amLODIPine 5 MG TAB PO SCH ×2 (08:43→21:00)
--- NOTE | 2016-07-23 12:51 | IPNPDOC ---
Clamp Remover Progress Note DATE OF SERVICE: 07/23/2016 DATE OF ADMISSION: Jul 21, 2016 at 17:57 INPATIENT REHABILITATION ADMISSION DAY: #2 SUBJECTIVE: Patient is a 86-year-old white male with left temporal lobe glioblastoma multiform and multiple CVAs. Patient denies any pain or problems today and in fact is suggesting that he is doing well and ready to go home. ALLERGIES: See Below MEDICATIONS: See below. OBJECTIVE: VITAL SIGNS: Please see below. PHYSICAL EXAMINATION: GENERAL: Well-nourished well-developed elderly white male who is alert and oriented to Person, Place, General time and situation. Patient appears to be in no acute distress he is sitting up in a chair eating his lunch in talking to the visiting nun. HEENT: Continues to have very mild facial droop. CARDIOVASCULAR: Regular rate and rhythm with normal S1 and S2 and no signs of his atrial fib today LUNGS: All block clear to auscultation. ABDOMEN: Mildly obese bowel sounds present in all quadrants. NEUROLOGICAL: Patient slightly more alert and interactive than yesterday and Tuesday. SKIN: No change LABORATORY DATA: Reviewed. Please see below. MICROBIOLOGY: Please see below. IMAGING: No new Echocardiogram: N/a. DVT prophylaxis ordered?: Yes ASSESSMENT AND PLAN: 1. Rehabilitation of brain tumor: Proceeding with patient and family training trying to get him stronger and steadier on his feet so he may return home with greater safety. Discharge goal is still for Tuesday. 2. Seizures: Patient continues to be brighter and more spontaneous and energetic when I see him day by day which is probably related to the improved seizure control. 3. Hypertension: Patient's primary care to see him in consult and will adjust medications accordingly. Patient continues to run high currently 161/73. TIME SPENT: Greater than 25 minutes. Allergies Coded Allergies: Enalapril (Unverified Adverse Reaction, Mild, COUGH, 07/25/12) No Known Allergies (Verified , 01/19/06) Vital Signs Vital Signs Date Time Temp Pulse Resp B/P Pulse Ox O2 Delivery O2 Flow Rate FiO2 07/23/16 08:43 60 161/73 07/23/16 06:00 97.7 18 98 Room Air Current Medications Current Medications Current Medications Acetaminophen (Tylenol Tab) 650 mg Q4HP PRN PO MILD PAIN (PS 1-4) Last administered on 07/22/16t 20:24; Start 07/21/16 at 17:15; Stop 08/20/16 at 17:14 Amlodipine Besylate (Norvasc) 5 mg BID PO Last administered on 07/23/16 08:43 ; Start 07/22/16 at 09:00; Stop 08/21/16 at 08:59 Amlodipine Besylate (Norvasc) 5 mg DAILY PO ; Start 07/22/16 at 09:00; Stop at 09:16; Status DC Atorvastatin Calcium (Lipitor) 20 mg DAILY PO Last administered on 07/23/16 08 :42; Start 07/22/16 at 09:00; Stop 08/21/16 at 08:59 Carvedilol (COReg) 3.125 mg BID PO Last administered on 07/22/16 20:25; Start 07/21/16 at 21:00; Stop 08/20/16 at 20:59 Dexamethasone (Decadron) 4 mg Q12H PO Last administered on 07/23/16 08:42; Start 07/21/16 at 21:00; Stop 08/20/16 at 20:59 Levetiracetam (Keppra) 750 mg BID PO Last administered on 07/23/16 08:42; Start 07/21/16 at 21:00; Stop 08/20/16 at 20:59 Pantoprazole Sodium (Protonix) 40 mg DAILY PO Last administered on 07/23/16 08 :42; Start 07/22/16 at 09:00; Stop 08/21/16 at 08:59 Tamsulosin HCl (Flomax) 0.4 mg DAILY PO Last administered on 07/23/16 08:42; Start 07/22/16 at 09:00; Stop 08/21/16 at 08:59 Vitamin D (Vitamin D) 1,000 units DAILY PO Last administered on 07/23/16 08:42 ; Start 07/22/16 at 09:00; Stop 08/21/16 at 08:59 Warfarin Sodium (Coumadin) 7.5 mg DAILY@17 PO Last administered on 07/22/16 17 :30; Start 07/22/16 at 17:00; Stop 07/29/16 at 16:59 IDANIA SALAS MD Jul 23, 2016 12:51
[2016-07-23 14:00] VITALS: BP 150/73
[2016-07-23 15:36] LABS: INR 1.42
[2016-07-23] MEDS: WARFARIN SOD 7.5 MG TAB PO SCH (17:04)
--- NOTE | 2016-07-23 17:11 | IPN ---
DATE: 07/13/2016 Alberto is seen in PMR unit. He is visiting with his brother. He is alert, conversant and looks in good spirits. PHYSICAL EXAMINATION: Blood pressure 150/72, pulse 65, respiratory rate 20, 100% oxygen saturation. LUNGS: Clear. HEART: Regular rate and rhythm. 1/6 systolic ejection murmur. ABDOMEN: Soft, non-tender. NEURO: No facial droop or weakness. Normal strength in the arms and legs. LABORATORY DATA: No labs ordered. I ordered an INR. It came back after rounds of 1.42. IMPRESSION: 1. High grade glioma. Plan to summarize yesterdays note. 2. Atrial fibrillation. Anticoagulation continue current dose of Warfarin. I have ordered daily INRs. 3. Rest of his medical problems as summarized last visit. 4. Dr. Oliveira will be rounding this weekend. I will make her aware of the pending INRs. I do not plan on seeing Mr. Osborne unless he develops some medical condition requiring evaluation.
--- NOTE | 2016-07-23 17:43 | IPN ---
DATE: 07/22/2016 DATE OF DICTATION: 07/23/2016 LOCATION: Physical Medicine and Rehabilitation (PM R) unit. HISTORY: I was requested by the PM R attending, Dr. Doran, to do medical consultation on Alberto Osborne, who was admitted with altered mental status on 07/13/2016 and found to have a temporal lobe mass, suspicious for high grade glioma. He is now on the PM R unit. We are asked to follow him for general medical issues. His past hospitalization is significant for encephalopathy secondary to brain tumor, suspected seizure, edema/brain swelling, acute kidney injury, seizure secondary to tumor, atrial fibrillation with rapid ventricular response, diastolic heart failure, hypertension, swallowing dysfunction, which improved before discharge. DISCHARGE MEDICATIONS: - warfarin 7.5 mg daily - amlodipine 5 mg daily - atorvastatin 20 mg daily - carvedilol 3.15 mg twice a day - Decadron 4 mg twice a day - Keppra 750 mg twice a day - Protonix 40 mg a day - Flomax 0.4 mg daily - vitamin D 1000 units daily CODE STATUS: DO NOT INTUBATE/DO NOT RESUSCITATE with trial of IV fluids or tube feedings as necessary. Discharge plans were to go through rehab, hopefully get discharged home, and then see the patient in the office. If he had progressive deterioration, we would assume the high grade glioma was the cause and make plans for palliative care. If his neurologic condition remains stable, we plan repeating MRI scan in approximately 4 weeks from the last scan. PHYSICAL EXAMINATION: VITAL SIGNS: Per flow sheet. He was a little despondent when I saw him on 07/22/2016, wanting to go home. No facial droop or weakness. LUNGS: Clear. HEART: Regular rhythm. 1/6 systolic ejection murmur. ABDOMEN: Soft, nontender. EXTREMITIES: No peripheral edema. NEUROLOGIC: Coordination: Normal finger to nose test. Normal strength in the arms and legs. LABORATORY DATA: White count was 83, hemoglobin 12.8, platelets 180. Sodium 145, potassium 4.4, BUN 39, creatinine 1.3, glucose 109, INR was 1.29. Keppra level that I sent out two days ago was not back yet. IMPRESSION: 1. Brain mass, probably high grade glioma. Plan is summarized above. After rehab, see in office. If neurologic condition is stable, reimage brain. If neurologic condition is deteriorated the plan for palliative care. 2. Atrial fibrillation. His rate was back to normal and still we are anticoagulating with warfarin. I assume laboratories have been ordered on . Order daily INR. 3. Hypertension. Under good control. 4. Benign prostatic hypertrophy (BPH) . Continue Flomax 0.4 mg daily. 5. Hyperlipidemia. Continue atorvastatin 20 mg daily. 6. Seizures. Continue Keppra 750 mg twice a day. 7. Steroid therapy. He is on Decadron 4 mg every 12 hours. Weaning per PM R attending.
[2016-07-23 20:00] VITALS: BP 165/78
[2016-07-23] MEDS: ACETAMINOPHEN TAB 650MG DOSE (2X325MG) PO PRN (23:56)
[2016-07-24 06:00] VITALS: BP 175/84
[2016-07-24 06:53] LABS: MEAN CORPUSCULAR HEMOGLOBIN 28.2 pg (27.0-33.0); MEAN CORPUSCULAR HGB CONC 32.1 g/dl (32.0-36.5); MEAN CORPUSCULAR VOLUME 87.9 fl (80.0-96.0); RED CELL DISTRIBUTION WIDTH 14.2 % (11.5-14.5); WHITE BLOOD COUNT 6.9 K/mm3 (4.0-10.0)
[2016-07-24 07:00] LABS: INR 1.86
[2016-07-24 07:11] LABS: ALBUMIN 2.4 GM/DL (3.2-5.2); ALBUMIN/GLOBULIN RATIO 0.71 (1.00-1.93); ALKALINE PHOSPHATASE 68 U/L (45-117); ALT/SGPT 66 U/L (12-78); ANION GAP 6 MEQ/L (8-16); AST/SGOT 21 U/L (15-37); BILIRUBIN,TOTAL 0.4 MG/DL (0.2-1.0); BLOOD UREA NITROGEN 36 MG/DL (7-18); CARBON DIOXIDE LEVEL 30 MEQ/L (21-32); CHLORIDE LEVEL 110 MEQ/L (98-107); CREATININE FOR GFR 1.17 MG/DL (0.70-1.30); GLOMERULAR FILTRATION RATE > 60.0 (>35); GLUCOSE, FASTING 122 MG/DL (83-110); POTASSIUM SERUM 4.1 MEQ/L (3.5-5.1); SODIUM LEVEL 146 MEQ/L (136-145); TOTAL PROTEIN 5.8 GM/DL (6.4-8.2)
[2016-07-24] MEDS: TAMSULOSIN 0.4 MG CAP PO SCH (09:07)
[2016-07-24] MEDS: VITAMIN D 1,000 INTERNATIONAL UNITS TABLET PO SCH (09:07)
[2016-07-24] MEDS: ATORVASTATIN 20 MG TAB PO SCH (09:07)
[2016-07-24] MEDS: levETIRAcetam 250MG TABLET (KEPPRA) PO SCH ×2 (09:08→21:16)
[2016-07-24] MEDS: amLODIPine 5 MG TAB PO SCH ×2 (09:08→21:16)
[2016-07-24] MEDS: PANTOPRAZOLE 40MG TAB (PROTONIX) PO SCH (09:08)
[2016-07-24] MEDS: CARVedilol 3.125 MG TAB PO SCH ×2 (09:08→21:00)
[2016-07-24 14:00] VITALS: BP 163/78
[2016-07-24] MEDS: WARFARIN SOD 7.5 MG TAB PO SCH (18:11)
[2016-07-24 20:00] VITALS: BP 163/79
[2016-07-24] MEDS: ACETAMINOPHEN TAB 650MG DOSE (2X325MG) PO PRN (21:16)
[2016-07-25 06:00] VITALS: BP 153/68
[2016-07-25 07:20] LABS: INR 2.82
[2016-07-25] MEDS: CARVedilol 3.125 MG TAB PO SCH ×2 (08:28→21:07)
[2016-07-25] MEDS: TAMSULOSIN 0.4 MG CAP PO SCH (08:28)
[2016-07-25] MEDS: PANTOPRAZOLE 40MG TAB (PROTONIX) PO SCH (08:28)
[2016-07-25] MEDS: VITAMIN D 1,000 INTERNATIONAL UNITS TABLET PO SCH (08:29)
[2016-07-25] MEDS: amLODIPine 5 MG TAB PO SCH ×2 (08:29→21:08)
[2016-07-25] MEDS: ATORVASTATIN 20 MG TAB PO SCH (08:29)
[2016-07-25] MEDS: levETIRAcetam 250MG TABLET (KEPPRA) PO SCH ×2 (08:29→21:07)
[2016-07-25 14:00] VITALS: BP 150/79
[2016-07-25] MEDS: WARFARIN SOD 7.5 MG TAB PO SCH (17:31)
[2016-07-25 20:00] VITALS: BP 136/78
[2016-07-25] MEDS: ACETAMINOPHEN TAB 650MG DOSE (2X325MG) PO PRN (21:08)
[2016-07-25] MEDS ORDERED: oxyCODONE 5MG TAB PO ONE (23:30)
[2016-07-26 06:00] VITALS: BP 140/81
[2016-07-26 07:28] LABS: INR 2.61
[2016-07-26] MEDS: amLODIPine 5 MG TAB PO SCH ×2 (09:15→21:15)
[2016-07-26] MEDS: TAMSULOSIN 0.4 MG CAP PO SCH (09:15)
[2016-07-26] MEDS: ATORVASTATIN 20 MG TAB PO SCH (09:16)
[2016-07-26] MEDS: levETIRAcetam 250MG TABLET (KEPPRA) PO SCH ×2 (09:16→21:13)
[2016-07-26] MEDS: CARVedilol 3.125 MG TAB PO SCH ×2 (09:17→21:13)
[2016-07-26] MEDS: PANTOPRAZOLE 40MG TAB (PROTONIX) PO SCH (09:17)
[2016-07-26] MEDS: VITAMIN D 1,000 INTERNATIONAL UNITS TABLET PO SCH (09:18)
[2016-07-26 14:00] VITALS: BP 148/78
--- NOTE | 2016-07-26 14:54 | IPNPDOC ---
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 Patient reports in general doing well and wanting to go home but did have some pain last night in his legs which seems to have responded a Percocet 5 mg/325 mg. ALLERGIES: See Below MEDICATIONS ON ADMISSION: Reviewed, see below. OBJECTIVE: VITAL SIGNS: Please see below. PHYSICAL EXAMINATION: GENERAL: Pleasant elderly white male who is alert and oriented to person place and time/situation. Patient however is a bit anxious but overall pleasant and cooperative with therapy though he is still having everybody about the leg discomfort he had last night and trouble sleeping it caused. HEENT: Normocephalic/atraumatic with some continued facial droop. CARDIOVASCULAR: Regular rate and rhythm with normal S1-S2 without S3-S4 murmur rubs. 2 out 4 radial pulses. LUNGS: All block clear to auscultation. ABDOMEN: Slightly obese bowel sounds present in all quadrants no palpable tenderness. NEUROLOGICAL: Is noted above with tendency and using front wheel walker to ambulate flex at the hip about 25-30. LABORATORY DATA: Reviewed. Please see below. MICROBIOLOGY: Please see below. IMAGING: Nothing new. DVT prophylaxis ordered?: Continues on Coumadin 7.5 mg per day with INR 2.67 today ASSESSMENT AND PLAN: 1. Rehabilitation of left temporal glioblastoma high-grade with secondary seizures, decreased level of consciousness and weakness. Patient progress and therapy and team working with family to prepare for discharge to home with them Tuesday 2. 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 3. Atrial fibrillation history: Continue treatment with Coumadin and monitoring INRs though yesterday's INR of 2.8 and today of 2.6 is not clear with steady dosing but may reflect patient gain some vitamin K increase as in the last day or so. INTERDISCIPLINARY CARE AND DISCHARGE PLANNIN. Glioblastoma multiform high-grade: Patient has shown significant improvement in cognition, mobility, and ADLs requiring min assist to supervision in the latter and being modified independent to supervision in the former. Target for discharge to home is Tuesday with consult for home care to include correction, PT, OT. However is anticipated that the patient will worsen in the near future due to the nature of the glioblastoma. Consultation is being sent to Dr. Barnhart in oncology to provide education and counseling to the patient and his family. He is likely eventually be a good candidate for hospice. 2. Atrial fibrillation: Patient will continue with Coumadin management under Dr. Mendosa's supervision. 3. CVA stable having cleared unmasking caused by seizures as seizure management appears to be stable. TIME SPENT: Chart review, the team rounds, patient exam and documentation required greater than 35 minutes. Allergies Coded Allergies: Enalapril (Unverified Adverse Reaction, Mild, COUGH, 07/25/12) No Known Allergies (Verified , 01/19/06) Vital Signs Vital Signs Date Time Temp Pulse Resp B/P Pulse Ox O2 Delivery O2 Flow Rate FiO2 07/26/16 09:15 68 158/72 07/26/16 09:15 Room Air 07/26/16 06:00 99.2 18 97 Laboratory Data Labs 24H Laboratory Tests 2 07/26/16 06:58: Prothromb Time International Ratio 2.61, Prothrombin Time 28.0H Current Medications Current Medications Current Medications Acetaminophen (Tylenol Tab) 650 mg Q4HP PRN PO MILD PAIN (PS 1-4) Last administered on 07/25/16 21:08; Start 07/21/16 at 17:15; Stop 08/20/16 at 17:14 Amlodipine Besylate (Norvasc) 5 mg BID PO Last administered on 07/26/16 09:15; Start 07/22/16 at 09:00; Stop 08/21/16 at 08:59 Amlodipine Besylate (Norvasc) 5 mg DAILY PO ; Start 07/22/16 at 09:00; Stop at 09:16; Status DC Atorvastatin Calcium (Lipitor) 20 mg DAILY PO Last administered on 07/26/16 09: 16; Start 07/22/16 at 09:00; Stop 08/21/16 at 08:59 Carvedilol (COReg) 3.125 mg BID PO Last administered on 07/26/16 09:17; Start 07/21/16 at 21:00; Stop 08/20/16 at 20:59 Dexamethasone (Decadron) 4 mg Q12H PO Last administered on 07/26/16 09:18; Start 07/21/16 at 21:00; Stop 08/20/16 at 20:59 Levetiracetam (Keppra) 750 mg BID PO Last administered on 07/26/16 09:16; Start 07/21/16 at 21:00; Stop 08/20/16 at 20:59 Pantoprazole Sodium (Protonix) 40 mg DAILY PO Last administered on 07/26/16 09: 17; Start 07/22/16 at 09:00; Stop 08/21/16 at 08:59 Tamsulosin HCl (Flomax) 0.4 mg DAILY PO Last administered on 07/26/16 09:15; Start 07/22/16 at 09:00; Stop 08/21/16 at 08:59 Vitamin D (Vitamin D) 1,000 units DAILY PO Last administered on 07/26/16 09:18 ; Start 07/22/16 at 09:00; Stop 08/21/16 at 08:59 Warfarin Sodium (Coumadin) 7.5 mg DAILY@17 PO Last administered on 07/25/16 17: 31; Start 07/22/16 at 17:00; Stop 07/29/16 at 16:59 IDANIA SALAS MD Jul 26, 2016 12:00
[2016-07-26] MEDS: WARFARIN SOD 7.5 MG TAB PO SCH (17:01)
[2016-07-26 20:00] VITALS: BP 142/72
[2016-07-26] MEDS: traZODone 50 MG TAB PO SCH (21:13)
[2016-07-27 06:00] VITALS: BP 169/80
[2016-07-27 07:39] LABS: INR 5.25
[2016-07-27] MEDS: amLODIPine 5 MG TAB PO SCH (09:00)
[2016-07-27] MEDS: CARVedilol 3.125 MG TAB PO SCH ×2 (09:00→20:49)
[2016-07-27] MEDS: levETIRAcetam 250MG TABLET (KEPPRA) PO SCH ×2 (09:18→20:48)
[2016-07-27] MEDS: PANTOPRAZOLE 40MG TAB (PROTONIX) PO SCH (09:18)
[2016-07-27] MEDS: TAMSULOSIN 0.4 MG CAP PO SCH (09:19)
[2016-07-27] MEDS: VITAMIN D 1,000 INTERNATIONAL UNITS TABLET PO SCH (09:19)
[2016-07-27] MEDS: ATORVASTATIN 20 MG TAB PO SCH (09:19)
--- NOTE | 2016-07-27 12:34 | IPNPDOC ---
Radar Operator Progress Note DATE OF SERVICE: 07/27/16 DATE OF ADMISSION: Jul 21, 2016 at 17:57 INPATIENT REHABILITATION ADMISSION DAY: #6 SUBJECTIVE: Patient is a 86-year-old white male with glioblastoma multiform high -grade with seizures. Patient's status post CVAs with history of atrial fib on Coumadin for anticoagulation. As discussed with Dr. Barnhart who feels patient has approximately a 3 or 4 month life expectancy hospice consult has been initiated and are to meet with the patient today about [address] Veronica has been notified of this. Patient notes trouble getting to sleep last night but no leg pain after using the trazodone. Patient without other complaints. Critical INR came in at 5.25 Coumadin and physical and occupational therapy are being held at this time and Dr. Dr. Veronica will assess and manage this when he comes in later. ALLERGIES: See Below MEDICATIONS: See below. OBJECTIVE: VITAL SIGNS: Please see below. PHYSICAL EXAMINATION: GENERAL: Well nourished well developed elderly white male with right facial drooping who is alert and oriented to person place and general situation and general time. Patient is pleasant and cooperative. Patient is in no acute distress. HEENT: Right facial droop otherwise normocephalic/atraumatic. CARDIOVASCULAR: Regular rate and rhythm with S1 and S2. LUNGS: All block clear to auscultation. ABDOMEN: Benign with bowel sounds throughout. NEUROLOGICAL: Unchanged. SKIN: No ecchymoses LABORATORY DATA: Reviewed. Please see below. MICROBIOLOGY: Please see below. IMAGING: No new. DVT prophylaxis ordered?: As noted above. ASSESSMENT AND PLAN: 1. Rehabilitation with glioblastoma: Patient doing well straight to transition to home tomorrow with some help and follow-up from hospitalist services. Patient will continue some physical occupational therapy at home. 2. Atrial fibrillation: Dr. Veronica is aware of the INR and will manage this. 3. Seizures: Patient remains free of these under control with Keppra. TIME SPENT: 20 minutes. Allergies Coded Allergies: Enalapril (Unverified Adverse Reaction, Mild, COUGH, 07/25/12) No Known Allergies (Verified , 01/19/06) Vital Signs Vital Signs Date Time Temp Pulse Resp B/P Pulse Ox O2 Delivery O2 Flow Rate FiO2 07/27/16 09:22 Room Air 07/27/16 09:00 60 122/68 07/27/16 06:00 98.1 18 96 Laboratory Data Labs 24H Laboratory Tests 2 07/27/16 06:41: Prothromb Time International Ratio 5.25*H, Prothrombin Time 48.1H Current Medications Current Medications Current Medications Acetaminophen (Tylenol Tab) 650 mg Q4HP PRN PO MILD PAIN (PS 1-4) Last administered on 07/25/16 21:08; Start 07/21/16 at 17:15; Stop 08/20/16 at 17:14 Amlodipine Besylate (Norvasc) 5 mg BID PO Last administered on 07/26/16 21:15; Start 07/22/16 at 09:00; Stop 08/21/16 at 08:59 Amlodipine Besylate (Norvasc) 5 mg DAILY PO ; Start 07/22/16 at 09:00; Stop at 09:16; Status DC Atorvastatin Calcium (Lipitor) 20 mg DAILY PO Last administered on 07/27/16 09: 19; Start 07/22/16 at 09:00; Stop 08/21/16 at 08:59 Carvedilol (COReg) 3.125 mg BID PO Last administered on 07/26/16 21:13; Start 07/21/16 at 21:00; Stop 08/20/16 at 20:59 Dexamethasone (Decadron) 4 mg Q12H PO Last administered on 07/27/16 09:19; Start 07/21/16 at 21:00; Stop 08/20/16 at 20:59 Levetiracetam (Keppra) 750 mg BID PO Last administered on 07/27/16 09:18; Start 07/21/16 at 21:00; Stop 08/20/16 at 20:59 Pantoprazole Sodium (Protonix) 40 mg DAILY PO Last administered on 07/27/16 09: 18; Start 07/22/16 at 09:00; Stop 08/21/16 at 08:59 Tamsulosin HCl (Flomax) 0.4 mg DAILY PO Last administered on 07/27/16 09:19; Start 07/22/16 at 09:00; Stop 08/21/16 at 08:59 Trazodone HCl (Desyrel) 50 mg QHS PO Last administered on 07/26/16 21:13; Start 07/26/16 at 21:00; Stop 08/02/16 at 00:00 Vitamin D (Vitamin D) 1,000 units DAILY PO Last administered on 07/27/16 09:19 ; Start 07/22/16 at 09:00; Stop 08/21/16 at 08:59 Warfarin Sodium (Coumadin) 7.5 mg DAILY@17 PO Last administered on 07/26/16 17: 01; Start 07/22/16 at 17:00; Stop 07/29/16 at 16:59; Status Future hold IDANIA SALAS MD Jul 27, 2016 12:34
--- NOTE | 2016-07-27 13:52 | IPN ---
DATE: 07/27/2016 Alberto was seen in Physical Medicine and Rehabilitation (PM R) unit. When I last saw him, we had planned to complete a course of rehabilitation, see him in the office, repeat brain imaging if his condition was stable. If his condition deteriorated, we were going to refer for palliative care. I was off for the weekend and returned to rounding today and found that oncology had been consulted and the patient has been set up with hospice and the plan was for discharge with hospice. They made no change in his clinical course to explain the change in plans. PHYSICAL EXAMINATION: 122/68, pulse 60, 98.1 degrees. GENERAL APPEARANCE: He is alert. He recognized me immediately. We had a good discussion. He has no focal weakness of arms or legs. LABORATORY DATA: His INR had been therapeutic for the last three days at 1.8, 2.8, 2.6. Today it is 5.2. IMPRESSION: 1. Excessive anticoagulation. No active bleeding. His dose of warfarin has been held. I would like to avoid giving him vitamin K, as it was hard to reinitiate anticoagulation the last time he received vitamin K. The original plan was for him to be discharged with home health nursing. They could draw his INR and he would not have to come to the office to get that done. He cannot have home health nursing and hospice and hospice will not draw his INR level for us. It might be prudent to go back to the original plan, which was to let us manage this as an outpatient through the office, as outlined in several previous notes. 2. Brain tumor, probably glioblastoma. Plan is outlined previously. Follow clinical course, did involve palliative care if he deteriorates neurologically. If he remains stable, repeat brain imaging. 3. Seizure disorder. He is on Keppra 750 mg twice a day without any recurrence of seizures. 4. Sleep disturbance, probably from his Decadron. I have reduced the dose to 4 mg daily. 5. Hypertension. Well controlled on amlodipine. He is currently given 5 mg twice a day. It would be more convenient to take that 10 mg once daily. I will change that effective tomorrow. I met with his daughter, Lon, at length. I met with the finished goods planner from PM R unit. I attempted to find the attending PM R physician. I left a message for him to call if he had any questions.
[2016-07-27 14:00] VITALS: BP 149/78
[2016-07-27 20:00] VITALS: BP 142/75
[2016-07-27] MEDS: traZODone 50 MG TAB PO SCH (20:49)
[2016-07-28] MEDS: ACETAMINOPHEN TAB 650MG DOSE (2X325MG) PO PRN (00:22)
[2016-07-28 06:00] VITALS: BP 163/77
[2016-07-28 07:01] LABS: ANION GAP 6 MEQ/L (8-16); BLOOD UREA NITROGEN 38 MG/DL (7-18); CALCIUM LEVEL 7.7 MG/DL (8.8-10.2); CARBON DIOXIDE LEVEL 30 MEQ/L (21-32); CHLORIDE LEVEL 111 MEQ/L (98-107); CREATININE FOR GFR 1.21 MG/DL (0.70-1.30); GLOMERULAR FILTRATION RATE > 60.0 (>35); GLUCOSE, FASTING 80 MG/DL (83-110); POTASSIUM SERUM 3.9 MEQ/L (3.5-5.1); SODIUM LEVEL 147 MEQ/L (136-145)
[2016-07-28 07:08] LABS: MEAN CORPUSCULAR HEMOGLOBIN 27.5 pg (27.0-33.0); MEAN CORPUSCULAR HGB CONC 31.1 g/dl (32.0-36.5); MEAN CORPUSCULAR VOLUME 88.3 fl (80.0-96.0); RED CELL DISTRIBUTION WIDTH 14.3 % (11.5-14.5); WHITE BLOOD COUNT 9.2 K/mm3 (4.0-10.0)
[2016-07-28 07:58] LABS: INR 6.26
[2016-07-28] MEDS: levETIRAcetam 250MG TABLET (KEPPRA) PO SCH ×2 (08:34→20:03)
[2016-07-28] MEDS: PANTOPRAZOLE 40MG TAB (PROTONIX) PO SCH (08:34)
[2016-07-28] MEDS: ATORVASTATIN 20 MG TAB PO SCH (08:34)
[2016-07-28] MEDS: TAMSULOSIN 0.4 MG CAP PO SCH (08:35)
[2016-07-28] MEDS: VITAMIN D 1,000 INTERNATIONAL UNITS TABLET PO SCH (08:35)
[2016-07-28] MEDS: amLODIPine 10 MG TAB PO SCH (08:35)
[2016-07-28] MEDS: CARVedilol 3.125 MG TAB PO SCH ×2 (08:38→20:03)
--- NOTE | 2016-07-28 12:20 | IPNPDOC ---
Sort Worker Progress Note DATE OF SERVICE: 07/28/16 DATE OF ADMISSION: Jul 21, 2016 at 17:57 INPATIENT REHABILITATION ADMISSION DAY: #7 SUBJECTIVE: Patient is a 86-year-old white male with left temporal glioblastoma. Having reviewed patient with his primary care Dr. Veronica the patient and his daughter arrangements for home care are being made at this time. Patient however with a critical INR value of 6.26 this morning. Patient expresses his frustration not being able return to home today while he is anti- coagulation is stabilized back into target range of 2.0-3.0 on INR. Patient with no complaints of fever, chills, pain, but some difficulty with sleep and his desire to return home. ALLERGIES: See Below MEDICATIONS ON ADMISSION: Reviewed, see below. OBJECTIVE: VITAL SIGNS: Please see below. PHYSICAL EXAMINATION: GENERAL: Well-nourished well-developed elderly white male was slight right facial droop who is alert and oriented to person place and most elements of time and his general situation. Patient is pleasant and cooperative and in no acute distress. HEENT: Normocephalic/Atraumatic with mild right facial droop. CARDIOVASCULAR: Regular rate and rhythm with normal S1-S2 LUNGS: All block clear to auscultation. ABDOMEN: Bowel sounds present in all quadrants abdomen nontender. NEUROLOGICAL: As noted above. SKIN: Unchanged. LABORATORY DATA: Reviewed. Please see below. MICROBIOLOGY: Please see below. IMAGING: No new. Echocardiogram: None. DVT prophylaxis ordered?: Coumadin to be held today, Dr. Veronica to make further adjustments. INR scheduled for the morning of 07/29/16. ASSESSMENT AND PLAN: 1. Rehabilitation of glioma: We'll proceed with discharge to home with family and home care, though patient may require hospice down the line. 2. Atrial fibrillation: As noted above on Coumadin management. 3. Seizures: Patient stable on current medication. TIME SPENT:For chart review, examination and documentation greater than 20 minutes. Allergies Coded Allergies: Enalapril (Unverified Adverse Reaction, Mild, COUGH, 07/25/12) No Known Allergies (Verified , 01/19/06) Vital Signs Vital Signs Date Time Temp Pulse Resp B/P Pulse Ox O2 Delivery O2 Flow Rate FiO2 07/28/16 08:38 62 07/28/16 08:35 163/77 07/28/16 08:00 Room Air 07/28/16 06:00 98.1 18 95 Laboratory Data CBC/BMP Laboratory Tests 07/28/16 06:19 Calcium Level 7.7 L, Red Blood Count 4.20 L, Mean Corpuscular Volume 88.3, Mean Corpuscular Hemoglobin 27.5, Mean Corpuscular Hemoglobin Concent 31.1 L, Red Cell Distribution Width 14.3 Labs 24H Laboratory Tests 2 07/28/16 06:19: Anion Gap 6L, Blood Urea Nitrogen 38H, Creatinine 1.21, Sodium Level 147H, Potassium Level 3.9, Chloride Level 111H, Carbon Dioxide Level 30, Calcium Level 7.7L, Glomerular Filtration Rate > 60.0, Prothromb Time International Ratio 6.26*H, Prothrombin Time 55.1H 07/28/16 08:44: Current Medications Current Medications Current Medications Acetaminophen (Tylenol Tab) 650 mg Q4HP PRN PO MILD PAIN (PS 1-4) Last administered on 07/28/16 00:22; Start 07/21/16 at 17:15; Stop 08/20/16 at 17:14 Amlodipine Besylate (Norvasc) 5 mg BID PO Last administered on 07/26/16 21:15; Start 07/22/16 at 09:00; Stop 07/27/16 at 13:44; Status DC Amlodipine Besylate (Norvasc) 5 mg DAILY PO ; Start 07/22/16 at 09:00; Stop at 09:16; Status DC Amlodipine Besylate (Norvasc) 10 mg DAILY PO Last administered on 07/28/16 08: 35; Start 07/28/16 at 09:00; Stop 08/27/16 at 08:59 Atorvastatin Calcium (Lipitor) 20 mg DAILY PO Last administered on 07/28/16 08: 34; Start 07/22/16 at 09:00; Stop 08/21/16 at 08:59 Carvedilol (COReg) 3.125 mg BID PO Last administered on 07/27/16 20:49; Start 07/21/16 at 21:00; Stop 08/20/16 at 20:59 Dexamethasone (Decadron) 4 mg DAILY PO ; Start 07/28/16 at 09:00; Stop 07/28/16 at 09:00; Status DC Dexamethasone (Decadron) 4 mg Q12H PO Last administered on 07/27/16 09:19; Start 07/21/16 at 21:00; Stop 07/27/16 at 13:38; Status DC Dexamethasone (Decadron) 4 mg QAM PO Last administered on 07/28/16 08:35; Start 07/28/16 at 09:00; Stop 08/27/16 at 08:59 Levetiracetam (Keppra) 750 mg BID PO Last administered on 07/28/16 08:34; Start 07/21/16 at 21:00; Stop 08/20/16 at 20:59 Pantoprazole Sodium (Protonix) 40 mg DAILY PO Last administered on 07/28/16 08: 34; Start 07/22/16 at 09:00; Stop 08/21/16 at 08:59 Tamsulosin HCl (Flomax) 0.4 mg DAILY PO Last administered on 07/28/16 08:35; Start 07/22/16 at 09:00; Stop 08/21/16 at 08:59 Trazodone HCl (Desyrel) 50 mg QHS PO Last administered on 07/27/16 20:49; Start 07/26/16 at 21:00; Stop 08/02/16 at 00:00 Vitamin D (Vitamin D) 1,000 units DAILY PO Last administered on 07/28/16 08:35 ; Start 07/22/16 at 09:00; Stop 08/21/16 at 08:59 Warfarin Sodium (Coumadin) 7.5 mg DAILY@17 PO Last administered on 07/26/16 17: 01; Start 07/22/16 at 17:00; Stop 07/29/16 at 16:59; Status Future hold IDANIA SALAS MD Jul 28, 2016 12:20
[2016-07-28 12:21] LABS: INR 5.44
[2016-07-28] MEDS ORDERED: oxyCODONE 5MG TAB PO PRN (12:30)
[2016-07-28 14:00] VITALS: BP 141/72
--- NOTE | 2016-07-28 17:03 | IPN ---
DATE: 07/28/2016 Alberto is still on the PMR unit. This patient is going to be discharged today, however afternoon rounds he was still there. His INR is prolonged and seems to have crested. It was 5.2 yesterday and 6.2 this morning and then when checked shortly after it was down to 5.4. He has had no active bleeding. Daughter does report that he has a slight cough due to dryness in the air and a dry throat. PHYSICAL EXAM: Blood pressure 141/72, pulse 68, respirations 18, 96% oxygen saturation. He is afebrile. LUNGS: Clear. HEART: Regular rhythm. NEUROLOGIC EXAM: Unchanged. IMPRESSION: 1. Excessive anticoagulation. I do not think this is a reason to necessarily prolong his admission. We see patient's more frail than Mr. Osborne with a supra-therapeutic INR and we may address outpatient on a frequent basis. His daughter will be with him and she thinks he is safe to be home. I would be happy to follow his INR after discharge through home health nursing. There is no active bleeding and no indication for vitamin K therapy. 2. Atrial fibrillation. Rate is controlled. 3. Slight cough. Lungs are clear. No sign of active infection. 4. Seizures. No recurrence. 5. Glioblastoma suggested by imaging studies. PLAN: Summarized several times previously: Home with a home health nurse, office evaluation to assess clinical status and re-imaging versus palliative care based on how he does over the next few weeks. Any questions about his INR tomorrow, feel free to call.
[2016-07-28 20:00] VITALS: BP 141/73
[2016-07-29 06:00] VITALS: BP 148/76
[2016-07-29 07:21] LABS: INR 4.07
[2016-07-29] MEDS: VITAMIN D 1,000 INTERNATIONAL UNITS TABLET PO SCH (08:13)
[2016-07-29] MEDS: TAMSULOSIN 0.4 MG CAP PO SCH (08:13)
[2016-07-29 08:14] VITALS: BP 148/76
[2016-07-29] MEDS: amLODIPine 10 MG TAB PO SCH (08:14)
[2016-07-29] MEDS: ATORVASTATIN 20 MG TAB PO SCH (08:14)
[2016-07-29] MEDS: PANTOPRAZOLE 40MG TAB (PROTONIX) PO SCH (08:14)
[2016-07-29] MEDS: levETIRAcetam 250MG TABLET (KEPPRA) PO SCH (08:14)
[2016-07-29] MEDS: CARVedilol 3.125 MG TAB PO SCH (08:15)
[2016-07-29 10:20] LABS: INR 3.7
[2016-07-29] MEDS ORDERED: AMLO10TA2 PO (10:47)
[2016-07-29] MEDS ORDERED: DEXA2TA PO (10:47)
--- NOTE | 2016-07-29 13:50 | PMRDS ---
DATE OF ADMISSION: 07/21/2016 DATE OF DISCHARGE: 07/29/2016 DISCHARGE DIAGNOSIS: Rehabilitation of glioblastoma of the left temporal lobe. HISTORY: The patient is an 86-year-old white male who on 07/13/2016 was brought in to the [facility] Emergency Room by his daughter and granddaughter due to a change in cognition. The patient was found to be having recurrent seizures and to be postictal as opposed to a new cerebrovascular accident (CVA). The patient with history of atrial fibrillation managed on Coumadin with three prior CVAs. In the course of workup, the patient was found to have a left temporal lobe mass with ring enhancement consistent with a high-grade glioblastoma. The patient's seizures were stabilized with intravenous (IV) Keppra and then transitioned to regular Keppra. The patient has diminished mobility, endurance, and self-care skills. Was started in therapy, and rehabilitation unit was consulted for a possible disposition. The patient was felt to be a good candidate and was transferred to [facility] on 07/21/2016. PROCEDURES: No procedures on this unit. DIAGNOSTIC AND LABORATORY DATA: Of note was the patient's INR which was at 1.29 on the morning of 07/22/2016, even though he was on 7.5 mg a day. Over the course of treatment with that, the patient showed a rise in INR to 2.82 on 07/25/2016 and then dropped down to 2.61 on 07/26/2016. He, therefore, was continued on the dose. However, on 07/27/2016, the patient's INR had climbed to 5.25. Medication was withheld. On the 07/28/2016, it went to 6.26. On today, 07/29/2016, it was initially 4.07 and has dropped at a 10 o'clock draw to 3.70; and the patient is felt now to be in a safe range for discharge. This has been discussed with his primary care, Dr. Marco Antonio Veronica MD who is consulting for the patient on medicine aspect during this admission; and adjustment to the medications will be made by Dr. Veronica, and arrangements for subsequent international normalized ratios (INRs) by home care senior care are also being arranged by Dr. Veronica. HOSPITAL COURSE: The patient started on a program of physical, occupational, and speech therapy after admission on 07/21/2016. Overall, he showed good participation and motivation in his therapies, though he is on admission maximum assist in bed and wheelchair transfers, moderate assist in toileting, and showed minimum assist to two provision levels on comprehension and expression, social interaction, problem solving, and memory. The patient progressed during the course of this admission; and at team rounds on 07/26/2016, had achieved a level of supervision in self care except for minimum assist in upper extremity dressing, modified independence in sphincter and bed and wheelchair transfers, and supervision on toilet with minimum assist to supervision level for comprehension, expression, social interaction, problem solving, and memory. Final FIM scores are pending. FIM: MR# Initials Goal Date=> [id number] AO Jul 22-Jul 23-Jun 25-Apr Self-Care Eating 7 6 5 5 [place] 7 4 5 Bath 6 3 4 5 Dress U 7 3 3 4 Dress L 6 1 3 5 Toilet 6 3 4 4 5 Spincther Bladder 7 1 5 6 Bowel 7 6 Transfers B/C/Wc 6 2 6 Toilet 6 4 4 3 5 Shower 6 4 Locomot. W/WC 6 Stairs 6 Compre 6 4 5 5 4 Express 6 4 5 6 4 Social Int. 6 5 6 6 5 Prob. Bhumi. 6 5 5 5 4 Memory 6 5 4 4 4 Total 113 32 51 57 73 COMPLICATION: None. DISCHARGE PLANNING: The patient is discharged to home with family and home care. DISCHARGE MEDICATIONS: - amlodipine 10 mg daily - dexamethasone 4 mg every morning - Tylenol 650 mg every 8 hours as needed for pain - atorvastatin 20 mg daily - Coreg 3.125 mg by mouth twice a day - Keppra 750 mg by mouth twice a day - pantoprazole sodium 40 mg every day - Flomax 0.4 mg every day - vitamin D3 1000 international units by mouth every day The patient currently is felt to be homebound; and having had consultation from Dr. Whitney in oncology, the patient is felt to have a terminal diagnosis. Hospice is a likely option for this patient in the future. Time spent preparing and documentation and communication with the patient and family exceeds 35 minutes. [facility]
[2016-07-29] MEDS ORDERED: KEPP1TAB2 PO (15:20)
[2016-07-29] MEDS ORDERED: PROTPAK PO (15:21)
== END 2016-07-29 12:29 | disposition home health service (06) | DRG 948 ==
LOC: M PM&R 17:57
PROVIDERS: ADMIT Physical Medicine & Rehabilitation; ATTEND Physical Medicine & Rehabilitation
DX: R53.1 Weakness (principal); C71.2 Malignant neoplasm of temporal lobe; I50.30 Unspecified diastolic (congestive) heart failure; I13.0 Hypertensive heart and chronic kidney disease with heart failure and stage 1 through stage 4 chronic kidney disease, or unspecified chronic kidney disease; R29.810 Facial weakness; Z66 Do not resuscitate; R47.1 Dysarthria and anarthria; I48.91 Unspecified atrial fibrillation; N40.0 Benign prostatic hyperplasia without lower urinary tract symptoms; G40.909 Epilepsy, unspecified, not intractable, without status epilepticus; R25.1 Tremor, unspecified; M79.605 Pain in left leg; G47.9 Sleep disorder, unspecified; N18.9 Chronic kidney disease, unspecified; M79.604 Pain in right leg; K57.90 Diverticulosis of intestine, part unspecified, without perforation or abscess without bleeding; R79.1 Abnormal coagulation profile; E78.5 Hyperlipidemia, unspecified; H91.90 Unspecified hearing loss, unspecified ear; K64.8 Other hemorrhoids; K42.9 Umbilical hernia without obstruction or gangrene; M19.90 Unspecified osteoarthritis, unspecified site; Z96.653 Presence of artificial knee joint, bilateral; Z86.73 Personal history of transient ischemic attack (TIA), and cerebral infarction without residual deficits; Z88.8 Allergy status to other drugs, medicaments and biological substances; Z80.0 Family history of malignant neoplasm of digestive organs; Z87.891 Personal history of nicotine dependence; Z79.01 Long term (current) use of anticoagulants; Z79.899 Other long term (current) drug therapy

== ENCOUNTER → 2016-07-30 | Outpatient (CLI) | payer MEDICARE, BC, OTHER ==
[~2016-07-30] MED LIST changes: +AMLO10TA2 PO; +DEXA2TA PO; +KEPP1TAB2 PO; +PROTPAK PO
[2016-07-30 13:51] LABS: INR 2.37
== END ==
LOC: M WUC 10:10
PROVIDERS: ATTEND Family Medicine
DX: Z51.81 Encounter for therapeutic drug level monitoring (principal); Z79.01 Long term (current) use of anticoagulants

== ENCOUNTER → 2016-08-02 | Outpatient (REF) | payer MEDICARE, OTHER ==
[2016-08-02 20:35] LABS: INR 1.63
== END ==
LOC: M SFHCADAM 16:13
PROVIDERS: ATTEND Family Medicine
DX: I48.2 Chronic atrial fibrillation (principal)

== ENCOUNTER → 2016-08-09 | Outpatient (CLI) | payer MEDICARE, OTHER ==
[2016-08-09 13:34] LABS: INR 2.7
== END ==
LOC: M WUC 09:53
PROVIDERS: ATTEND Family Medicine
DX: I48.2 Chronic atrial fibrillation (principal); Z51.81 Encounter for therapeutic drug level monitoring; Z79.01 Long term (current) use of anticoagulants

== ENCOUNTER → 2016-08-21 | Outpatient (CLI) | payer MEDICARE, BC, OTHER | LOC: M RAD 09:51 | PROVIDERS: ATTEND Family Medicine | DX: Z53.9 Procedure and treatment not carried out, unspecified reason (principal); D49.6 Neoplasm of unspecified behavior of brain ==